=== PATIENT | male | born 1945 | race Caucasian/White ===

== ENCOUNTER → 2016-07-20 | Outpatient (CLI) | payer OTHER ==
[~2016-07-20] MED LIST: ACET-749 PO; CATAPLEX D PO; CATAPLEX E PO; CHOLINE PO; ENZYCORE PO; FERROFOOD PO; NITR1CAP16 PO; PHEN-876 PO; PROLAMINE IODINE PO; PROT1POW PO; RENATROPHIN PO; SMZ/TMP; TRACE MINERALS PO; ZYPAN PO; [UNRECOGNIZED DRUG - CODE] PO; [UNRECOGNIZED DRUG - OTHER] PO; [UNRECOGNIZED DRUG - OTHER] PO; [UNRECOGNIZED DRUG - OTHER] PO; [UNRECOGNIZED DRUG - OTHER] PO
== END | disposition home or self-care (01) ==
LOC: C.LABSPEC 17:14
PROVIDERS: ATTEND Nurse Practitioner Family
DX: R33.9 Retention of urine, unspecified (principal); R30.0 Dysuria; R35.1 Nocturia; R32 Unspecified urinary incontinence

== ENCOUNTER 2016-09-20 10:33 | Day surgery (SDC) | payer OTHER ==
[2016-09-07 14:47] LABS: BASO % 0.9 %; BASO ABS # 0.05 K/uL (0-0.2); COMPLETE YES; EOS % 3.4 %; HEMATOCRIT 36.1 % (42-52); IG% 0.2 %; LYMPH % 29.1 %; LYMPH ABS # 1.55 K/uL (1.2-3.4); MEAN CELL VOLUME 97.8 fL (80-100); MEAN CORPUSCULAR HEMOGLOBIN 34.1 pg (25-34); MEAN CORPUSCULAR HGB CONC 34.9 g/dl (32-36); MEAN PLATELET VOLUME 11.4 fL (7.4-10.4); NEUT % 54.4 %; PLATELET COUNT 206 K/uL (130-400); RED BLOOD COUNT 3.69 M/uL (4.7-6.1); WHITE BLOOD COUNT 5.33 K/uL (4.8-10.8)
[2016-09-07 15:08] LABS: BUN/CREATININE RATIO 19.3 (10-20); CALCIUM 8.9 mg/dl (8.5-10.1); CREATININE 0.73 mg/dl (0.60-1.40); POTASSIUM 4.3 mmol/L (3.5-5.1)
[2016-09-07 15:25] LABS: URINE APPEARANCE CLEAR (CLEAR); URINE BILIRUBIN NEG (NEG); URINE COLOR YELLOW; URINE NITRITE NEG (NEG); URINE PH 7.5 (4.5-7.5); UROBILINOGEN NEG (NEG)
[2016-09-07 15:28] LABS: MANUAL MICROSCOPIC REQUIRED? NO; REVIEW REQ? NO
[~2016-09-20] VITALS: Ht 175.3 cm; Wt 61.4 kg
[~2016-09-20 10:33] MED LIST changes: -ACET-749 PO; -CATAPLEX D PO; +CIPROFLOXACIN / D5W 400 MG IV SCH; -FERROFOOD PO; +LACTATED RINGER'S 1000ML 1,000 ML IV SCH; -NITR1CAP16 PO; -PHEN-876 PO; -PROLAMINE IODINE PO; -RENATROPHIN PO; -SMZ/TMP; -TRACE MINERALS PO; -[UNRECOGNIZED DRUG - CODE] PO; -[UNRECOGNIZED DRUG - OTHER] PO; -[UNRECOGNIZED DRUG - OTHER] PO; -[UNRECOGNIZED DRUG - OTHER] PO; -[UNRECOGNIZED DRUG - OTHER] PO
[2016-09-20] MEDS ORDERED: [UNRECOGNIZED DRUG - OTHER] PO (11:10)
[2016-09-20 11:13] VITALS: BP 141/90; PULSE 57; TEMP 36.5; O2SAT 99; Ht 175.3 cm; Wt 61.4 kg
[2016-09-20] MEDS ORDERED: ONDANSETRON INJ 2 MG/ML 2 ML VIAL IV PRN (11:15)
[2016-09-20] MEDS ORDERED: HYDROmorphone INJ 1 MG/ML SYR IV PRN (11:15)
[2016-09-20] MEDS ORDERED: FENTANYL CITRATE INJ 50 MCG/1 ML 2 ML VIAL IV PRN (11:15)
[2016-09-20] MEDS ORDERED: LABETALOL HCL IV 5 MG/ML 20ML IV PRN (11:15)
[2016-09-20] MEDS ORDERED: MEPERIDINE HCL 25 MG/ML CARP IV PRN (11:15)
[2016-09-20] MEDS ORDERED: EpHEDrine SULFATE INJ 50 MG/ML AMP IV PRN (11:15)
[2016-09-20] MEDS ORDERED: ATROPINE SULFATE 0.1 MG/ML 5ML SYR IV PRN (11:15)
[2016-09-20] MEDS ORDERED: LIDOCAINE HCL 2% 2 ML VIAL (20MG/ML) ONE (13:10)
[2016-09-20] MEDS ORDERED: ONDANSETRON INJ 2 MG/ML 2 ML VIAL ONE (13:10)
[2016-09-20] MEDS ORDERED: MIDAZOLAM HCL 1 MG/ML 2ML VIAL ONE (13:10)
[2016-09-20] MEDS ORDERED: PROPOFOL IV EMULSION 10 MG/ML 20 ML VIAL IV ONE (13:10)
[2016-09-20] MEDS ORDERED: FENTANYL CITRATE INJ 50 MCG/1 ML 2 ML VIAL ONE (13:10)
[2016-09-20] MEDS ORDERED: DEXAMETHASONE SOD INJ 4 MG/ML VIAL ONE (13:10)
--- NOTE | 2016-09-20 13:28 | History & Physical Bridge Note ---
H&P Re-Evaluation Bridge Note: I have examined the patient, reviewed the History & Physical and in the interval since the performance of the History & Physical I have noted the following changes of clinical significance: No changes noted
--- NOTE | 2016-09-20 14:12 | [facility] Post Operative Brief Note ---
Immediate Operative Summary Operative Date Sep 20, 2016. Pre-Operative Diagnosis Urethral stricture Post-Operative Diagnosis Urethral stricture Procedure(s) Performed cystoscopy; urethral dilation; catheter placement Surgeon Lorenzo Whitlock MD Supervisor [employer] Surgeon(s) none Estimated Blood Loss 0cc Findings bulbar urethral stricture - dilated from 12-20F - bladder neck and prostate were widely patent behind the stricture, healthy appearing bladder s/p TURP in May Specimens none Drains 18F councill tip catheter Anesthesia MAC Complication(s) None Disposition Recovery Room / PACU (stable)
[2016-09-20] MEDS ORDERED: PHEN-876 PO (14:13)
[2016-09-20] MEDS ORDERED: NITR1CAP16 PO (14:13)
[2016-09-20] MEDS ORDERED: PHENAZOPYRIDINE HCL 200 MG TAB PO STA (14:16)
[2016-09-20] MEDS ORDERED: SODIUM CHLORIDE 0.9% 1000ML 1,000 ML IV SCH (14:16)
--- NOTE | 2016-09-20 14:16 | Discharge Instructions ---
Discharge Instructions Date of Service Sep 20, 2016. Admission Reason for Admission: Urine Retention, Urethral Stricture Discharge Discharge Diagnosis / Problem: urethral stricture Discharge Goals Goal(s): Decrease discomfort, Improve function, Increase independence, Improve disease control Activity Recommendations Activity Limitations: resume your previous activity Lifting Limitations: none Exercise/Sports Limitations: none May Resume Sexual Activity: when tolerated Shower/Bathe: no limitations Driving or Machine Use: no limitations . Instructions / Follow-Up Instructions / Follow-Up Please come to Dr. Whitlock's office on 09.23.16 at 9:00AM to have your catheter removed. Discharge Diet Recommended Diet: Regular Diet Procedures Procedures Performed: cystoscopy; urethral dilation; catheter placement Pending Studies Studies pending at discharge: no Medical Emergencies . Who to Call and When: Medical Emergencies: If at any time you feel your situation is an emergency, please call 911 immediately. . Non-Emergent Contact Non-Emergency issues call your: Urologist Call Non-Emergent contact if: you have a fever, temperature is above 101.5, your pain is not controlled, your pain is worsening . . "Provider Documentation" section prepared by Parish Marroquin. VTE Core Measure Inpt VTE Proph given/why not?: Treatment not indicated
[2016-09-20] MEDS ORDERED: OXYCODONE/ACETAMINOPHEN 5-325 TAB PO PRN ×2 (14:30)
[2016-09-20] MEDS ORDERED: ACETAMINOPHEN 325 MG TAB PO PRN (14:30)
--- NOTE | 2016-09-20 14:42 | Anesthesiology Progress Note ---
Anesthesia Post Op Note Date & Time Sep 20, 2016 at 14:42 Vital Signs Pain Intensity: 0 Vital Signs Past 12 Hours Date Time Temp Pulse Resp B/P Pulse Ox O2 Delivery O2 Flow Rate FiO2 09/20/16 14:35 52 13 128/78 100 Room Air 09/20/16 14:25 50 14 112/74 100 Mask 10 09/20/16 14:16 36.5 49 16 102/68 100 Mask 10 09/20/16 11:13 36.5 57 18 141/90 99 Room Air Notes Mental Status: alert / awake / arousable, participated in evaluation Pt Amnestic to Procedure: Yes Nausea / Vomiting: adequately controlled Pain: adequately controlled Airway Patency, RR, SpO2: stable & adequate BP & HR: stable & adequate Hydration State: stable & adequate Anesthetic Complications: no major complications apparent
[2016-09-20 14:45] VITALS: BP 119/80; PULSE 54; TEMP 36.4; O2SAT 98
[2016-09-20 15:25] VITALS: BP 115/81; PULSE 54; TEMP 36.3; O2SAT 96
--- NOTE | 2016-09-20 16:38 | OPERATIVE REPORT ---
DATE OF OPERATION: 09/20/2016 PREOPERATIVE DIAGNOSIS: Urethral stricture. POSTOPERATIVE DIAGNOSIS: Urethral stricture. PROCEDURES PERFORMED: Cystoscopy, urethral dilation and catheter placement. ANESTHESIA: MAC. ESTIMATED BLOOD LOSS: Zero. URINE OUTPUT: Not recorded. SPECIMENS: There are no specimens. DRAINS: An 18-Montserratian Councill tip catheter. DESCRIPTION OF THE PROCEDURE: Dannie Zimmer was identified in the preoperative holding area. Appropriate informed consents were reviewed and completed and the patient was transported to the operating suite. Upon arrival, he received appropriate preoperative antibiotics in the form of ciprofloxacin and was sedated. He was placed in dorsolithotomy position and sterilely prepped and draped. I initially passed a 22-Montserratian cystoscope with 30 degree lens. In the bulb of the urethra, I encountered a stricture and was unable to navigate beyond it with the scope. I then passed a wire through the working element of the scope and guided it through the open lumen of the stricture and into the bladder. I then withdrew the scope. I used S-curve urethral dilators to sequentially dilate the stricture. I began at 12-Montserratian and I advanced sequentially by 2-Montserratian intervals to 20-Montserratian as my last dilator. There was return of clear urine with each of these. After completing this, I reentered with a 17-Montserratian cystoscope alongside the wire and I guided this gently through the urethra and was able to easily navigate through the nondilated stricture and into the bladder. Full inspection was carried out. The bladder appeared to be healthy a widely patent bladder neck and no significant prostatic obstruction or residual median lobe and I was able to easily pass the scope back and forth over the area of the strictured urethra. There appeared to be excellent resolution with the dilation. I withdrew the scope, leaving the bladder full and utilizing the existing safety wire, I placed an 18-Montserratian Councill tip catheter without difficulty. The patient was subsequently reversed from anesthesia and taken to the PACU in stable condition. I attest to the content of the Intraoperative Record and any orders documented therein. Any exceptio ns are noted below.
[2016-09-21] MEDS ORDERED: LACTATED RINGER'S 1000ML 1,000 ML IV SCH (06:00)
== END 2016-09-20 15:55 | disposition home or self-care (01) ==
LOC: C.ACU 10:33
PROVIDERS: ATTEND Urology
DX: N35.9 Urethral stricture, unspecified (principal); N40.1 Benign prostatic hyperplasia with lower urinary tract symptoms; N13.8 Other obstructive and reflux uropathy; D64.9 Anemia, unspecified; Z82.49 Family history of ischemic heart disease and other diseases of the circulatory system; Z82.3 Family history of stroke; Z80.0 Family history of malignant neoplasm of digestive organs

== ENCOUNTER 2019-12-05 14:20 | Inpatient (IN) ==
[2019-12-05 15:48] LABS: Eosinophils # (auto) 0.01 K/uL (0-0.5); Eosinophils % (auto) 0.2 %; Hematocrit (blood only) 32.1 % (42-52); Hemoglobin 11.5 g/dL (14.0-18.0); Immature Granulocytes # (auto) 0.01 K/uL (0.00-0.02); Immature Granulocytes % (auto) 0.2 %; Lymphocytes # (auto) 0.73 K/uL (1.2-3.4); Mean Corpuscular Hemoglobin 36.2 pg (25-34); Mean Corpuscular Hgb Conc 35.8 g/dL (32-36); Mean Corpuscular Volume 100.9 fL (80-100); Mean Platelet Volume 12.1 fL (7.4-10.4); Monocytes # (auto) 0.24 K/uL (0.11-0.59); Monocytes % (auto) 5.6 %; Neutrophils # (auto) 3.31 K/uL (1.4-6.5); Platelet Count 161 K/uL (130-400); RDW Coefficient of Variation 12.5 % (11.5-14.5); RDW Standard Deviation 45.5 fL (36.4-46.3); Red Blood Count 3.18 M/uL (4.7-6.1)
--- NOTE | 2019-12-05 15:49 | XRay Report ---
XR chest 1V portable CLINICAL HISTORY: weakness dyspnea COMPARISON STUDY: No previous studies for comparison. FINDINGS: The bones soft tissues and hemidiaphragms are normal. The cardiomediastinal silhouette is n ormal. The lungs are clear. The pulmonary vasculature is normal. IMPRESSION: Negative chest. ACT 112: Negative or not required by law. The above report was generated using voice recognition software. It may contain grammatical, syntax or spelling errors. Electronically signed by: Rod Vazquez M.D. 12/05/2019 3:48 PM
--- NOTE | 2019-12-05 15:50 | XRay Report ---
SINGLE VIEW PELVIS CLINICAL HISTORY: Fall. FINDINGS: 2 AP supine pelvic radiographs are correlated with pelvic CT dated 03/14/2019. The skeletal structures are osteopenic. There is no radiographic evidence of acute fracture involving the hips or bony pelvis. Mild/moderate degenerative joint space narrowing is seen in the hips. Lumbosacral spondy losis is partially visualized. The sacroiliac joints are normal. Phleboliths and surgical clips are n oted in the pelvis. There is no bowel obstruction. Moderate constipation is observed. IMPRESSION: No acute bony abnormality is identified. Electronically signed by: Kiran Hinojosa M.D. 12/05/2019 3:49 PM
[2019-12-05 15:57] LABS: iSTAT Creatinine 0.6 mg/dl (0.6-1.3); iSTAT Hemoglobin 11.6 g/dl (14.0-18.0); iSTAT Ionized Calcium 1.13 mmol/l (1.12-1.32)
[2019-12-05 16:05] LABS: BUN Creatinine Ratio 39.9 (10-20); Blood Urea Nitrogen 24 mg/dl (7-18); Calcium 8.9 mg/dl (8.5-10.1); Carbon Dioxide 27 mmol/L (21-32); Chloride 90 mmol/L (98-107); Creatinine Clr Calc Pharmacy 84.5 ml/min; Est GFR (African American) 114.8; Glucose 105 mg/dl (70-99); Magnesium 2.6 mg/dl (1.8-2.4); Potassium 3.9 mmol/L (3.5-5.1); Sodium 122 mmol/L (136-145)
[2019-12-05 16:09] LABS: Troponin I < 0.015 ng/ml (0-0.045)
--- NOTE | 2019-12-05 16:17 | CT Scan Report ---
HEAD CT NONCONTRAST CT DOSE: HISTORY: fall TECHNIQUE: Multiaxial CT images of the head were performed without the use of intravenous contrast. A utomated exposure control was utilized for this study. A dose lowering technique was utilized adheri ng to the principles of ALARA. Comparison: Head CT 07/20/2019. Findings: The paranasal sinuses and mastoid air cells are clear. The calvarium and skull base are int act. There is no mass, hematoma, midline shift, acute infarct. White matter hypodensity is nonspecifi c but suggestive of microvascular ischemic change. The ventricles and sulci demonstrate mild age-rela china involutional changes. Impression: No acute intracranial abnormality. Atrophy and microvascular ischemic changes. ACT 112: Negative or not required by law. Electronically signed by: Ray Castro M.D. 12/05/2019 4:16 PM
--- NOTE | 2019-12-05 16:23 | CT Scan Report ---
CERVICAL SPINE CT CT DOSE: 1074.43 mGy.cm HISTORY: Neck pain. fall TECHNIQUE: Multiaxial CT images of the cervical spine were performed and reformatted in the sagittal and coronal plane without the use of contrast. A dose lowering technique was utilized adhering to th e principles of ALARA. COMPARISON: None. FINDINGS: No fractures. Prevertebral soft tissues and the C1-C2 interval are intact. No pneumothorax. Severe degenerative disc disease throughout the cervical spine. There is 2 mm of anterolisthesis of C5 on C6. This is likely due to long-standing degenerative change. IMPRESSION: No fractures within the cervical spine. Severe degenerative changes throughout the cervical spine. ACT 112: Negative or not required by law. Electronically signed by: Ray Castro M.D. 12/05/2019 4:22 PM
[2019-12-05] MEDS ORDERED: SODIUM CHLORIDE 0.9% 1000ML 1,000 ML IV SCH (16:30)
[2019-12-05 17:40] LABS: Appearance Urine Clear (Clear); Bacteria Urine Automated Negative (Negative); Bilirubin Urine Negative (Negative); Blood Urine Trace (Negative); Cast Urine Automated 0 /lpf (0-5); Color Urine Yellow; Epithelial Cell Urine Auto 0-5 /lpf (0-5); Glucose Urine UA Negative (Negative); Ketones Urine Negative (Negative); Leukocyte Esterase Urine Negative (Negative); Nitrite Urine Negative (Negative); Protein Urine Negative (Negative); RBC Urine Automated 0-4 /hpf (0-4); Specific Gravity Urine 1.009 (1.000-1.030); Urobilinogen Urine Negative (Negative); WBC Urine Automated 0 /hpf (0-5); pH Urine 8.5 (4.5-7.5)
--- NOTE | 2019-12-05 17:57 | History & Physical Report ---
Date of Service December 05, 2019 Assessment & Plan (1) Chronic hyponatremia: This is a 74-year-old male who has significant PMH of chronic anemia, BPH, urethral stricture, history of TB in 1973 who presents to ED in the referral of PCP secondary to hyponatremia. Further admits over the past 2 to 3 months of increasing weakness, falls, dizziness with standing, and ~ 40lb weight loss in past 4 months. This is chronic hyponatremia and has been present as documented in [facility] dating back to 2003. 11/26 sodium 123, 09/05/19 125, 01/2019 130, denies further work up in past. Renal fxn 24 and 0.59, with ratio 39.9, although not dry on exam. Report excessive fluid intake of 10-15 8oz cups daily. Pt does have untreated hypothyroidism - recommending to start levothyroxine as recommended outpt and discontinuing OTC supplements as this could be contributing. He has received IVF in ED. ddx: euvolemic hyponatremia, SIADH, primary polydipsia, nephrogenic DI, malignancy, hypothyroid admit to tele consult nephrology await repeat BMP treat hypothyroidism Fluid restriction 1.5L urine osm/na and serum osm obtained - will obtain am cortisol (2) Weight loss, unintentional: pt reports ~40lb weight loss, unintentional in 4 months denies any other constitutional symptoms including night sweats CT head negative, CT chest + 3mm JASWANT pulm nodule obtain CT abd/pelvis to eval for underlying malignancy (he had EGD 09/2019 +esophagitis, colonoscopy poor prep) pre albumin in a.m., consult dental treatment coordinator treat hypothyroidism (3) Pulmonary nodule, left: incidental pulmonary nodule found on Ct 11/29 3mm JASWANT recommend follow up CT as outpt given associated weight loss, 12 months per fleischner criteria if continued weight loss of no other etiology would repeat sooner (4) Hypothyroidism: TSH 13.2, free T4 0.75 Outpatient labs 11/26 revealed TSH 13, free T4 0.73 Patient was advised to start levothyroxine; however has not yet started and has been using [id number] thyroid complex supplements Commended continuing use of thyroid supplements and starting levothyroxine 25 mcg daily (5) Anemia: H&H stable at 11.5 and 32.1 no s/sx of bleeding macrocytic obtain b12, folate, iron studies consistent with outpt lab studies (6) Lower extremity edema: Patient with bilateral lower extremity pretibial edema No signs or symptoms of DVT obtain b/l dopplers for thoroughness, along with LFTs edema likely multifactorial in setting of weight loss, hypothyroidism, possible hypoalbuminemia, polydipsia monitor, teds (7) Benign prostatic hyperplasia: continue with tropsium and myrbetriq (8) DVT prophylaxis: SQ heparin q12 Disposition: admit to tele Follow up: PCP Dr. Davenport upon discharge Pt was seen and examined in collaboration with Dr. Nick, please see addendum History of Present Illness Chief Complaint: Referred by PCP due to low sodium. Primary Care Provider: Lexa Davenport DO This is a 74-year-old male who has significant PMH of chronic anemia, BPH, urethral stricture, history of TB in 1973 who presents to ED in the referral of PCP secondary to hyponatremia. Further admits over the past 2 to 3 months of increasing weakness, falls, dizziness with standing, and ~ 40lb weight loss in past 4 months. He states, "I've always had low sodium, but never this low." "I just add more salt to my diet." He denies every having workup or nephrology referral. He denies any recent illness, fever, sweats, syncope, chest pain, sob, palpitations, cough, n/v/d, abdominal pain. He is more on the constipated side but denies melena or hematochezia. +Urinary urgency due to chronic prostate enlargement, but denies dysuria or hematuria. Denies sick contacts or known contacts with Covid 19. He denies loss of taste of smell. He admits to ~40lb weight loss in past 4 months despite adequate appetite. "I keep losing weight." He was told he had hypothyroidism, but has never taken prescription for this. He has been using OTC thyroid supplements. Further complains of lower extremity swelling, worse in evening and usual absent first thing in the morning. Last fall approx 2 weeks ago. He did have recent w/u with PCP 11/26 08/05 to weakness and weight loss which revealed Na of 123, TSH 1, Free T4 .73. He had Chest CT 11/29 to eval for possible malignancy which revealed T10 compression fracture, old right third and left lateral rib fracture, incidental 3 mm pulmonary nodule left upper lobe, thoracic aortic enlargement 4.2 cm. He currently denies any back pain. He overall does have difficulty walking secondary to weakness, but not due to pain. EGD and colonoscopy 09/2019. EGD revealed LA grade a esophagitis, no bleeding. Colonoscopy revealed poor prep and therefore unable to evaluate. He has not scheduled a for a repeat colonoscopy. It was recommended he be started on Protonix for esophagitis but he has not started this. He does overall admit to a good appetite. He drinks approximately 10-15 8 ounce cups of water/tea daily. He denies any alcohol use. In ED patient remained hemodynamically stable. Lab work notable for H&H 11.5 and 32.1, WBC 4.3 platelet 161, sodium 122, K4.0, BUN 24, creatinine 0.59, glucose 105, serum osmolality 263, mag 2.6, TSH 13.2, free T4 0.75. Urinalysis unremarkable, urine osmolality 260, urine sodium 68. He did undergo multiple imaging secondary to history of fall. He underwent head CT which revealed chronic microvascular ischemic change but no acute pathology. Cervical spine CT revealed degenerative changes but no acute abnormality. Pelvic x-ray was negative for fracture. Chest x-ray was negative for acute cardiopulmonary normality. Allergies Allergy/AdvReac Type Severity Reaction Status Date / Time Penicillins Allergy Mild HIVES, RASH Unverified 12/05/19 15:28 lactose AdvReac Mild GI UPSET Verified 12/05/19 15:28 solifenacin AdvReac Mild SEVERE Verified 12/05/19 15:28 DIARRHEA Home Medications Home Medications Medication Instructions Recorded Confirmed Type Cataplex B 2 tabs PO TIDM 12/05/19 12/05/19 History Enzycore 1 cap PO TIDM 12/05/19 12/05/19 History Tarik Food 1 tab PO DAILY 12/05/19 12/05/19 History Ligaplex 2 2 tab PO TIDM 12/05/19 12/05/19 History Magnesium Malate 0 mg PO UD 12/05/19 12/05/19 History Thyroid Complex Otc 1 tab PO DAILY 12/05/19 12/05/19 History Thytropin Tab 1 tab PO TIDM 12/05/19 12/05/19 History cyanocobalamin (vitamin B-12) 0 mcg PO DAILY 12/05/19 12/05/19 History [Vitamin B-12] mirabegron [Myrbetriq] 25 mg PO DAILY 12/05/19 12/05/19 History trospium 60 mg PO QAM 12/05/19 12/05/19 History Past Med/Surg History Medical History Anemia Benign prostatic hyperplasia (Chronic) History of anemia History of colitis History of depression Hx of migraines Hx of tuberculosis A "YOUNG MAN" (NEVER HAD SKIN TEST SINCE FINISHED TREATMENT/ANTIBIOTICS) Hypothyroidism (Acute) "HAS NOT STARTED THYROID MEDICATION PRESCRIBED" Lactose intolerance Osteoarthritis Urinary frequency Surgical History History of anesthesia reaction URINARY RETENTION History of appendectomy History of cataract surgery RT/LEFT History of colonoscopy History of cystoscopy History of herniorrhaphy INGUINAL HERNIA X 2 History of removal of testicle STRANGULATED/NECROTIC History of tonsillectomy History of tooth extraction Hx of transurethral resection of prostate Family History Brother Family hx of colon cancer Other Cancer Heart disease Social History Preferred Language: Maldivian Communication Ability: Effective Pressroom Foreman Required: No Beliefs That Will Affect Care: None Current Living Situation: Alone Other Information That Helps Us Care for You: No Feels Safe at Home: Yes Safety Concerns: Feels Safe At This Time Smoking Status: Never smoker Second Hand Exposure: No ; Hx Alcohol Use: No Hx Substance Use: No Review of Systems Review of Systems: All systems reviewed & are unremarkable except as noted in HPI & below Physical Exam Physical Exam: Constitutional: Thin, cachectic, M, vitals as above, NAD, sitting up in bed, pleasant, conversing easily Head: Normocephalic, Atraumatic Eyes: PERRL, conjunctivae normal, anicteric sclerae ENMT: external ear and nose normal, oropharynx normal Neck: trachea midline, no thyromegaly normal visual inspection Respiratory: normal respiratory effort, lungs clear to auscultation, no wheeze, rales, rhonchi. Normal insp/exp effort, no accessory muscle use Cardiovascular: RRR, no murmur, +1 lower extremity, pretibial edema, no erythema, warmth, negative homans sign Vessels: no JVD or carotid bruit Chest: normal inspection of chest Abdomen: normal bowel sounds, soft, nontender, no hepatosplenomegaly Musculoskeletal: no cyanosis or clubbing, extremities motor strength 5/5 Skin: no rashes, warm and dry normal turgor Neurologic: PERRL, EOMI, accommodation nl, no face palsy, no dysarthria CN's II-XI intact bilaterally and moves all extremities Psychiatric: A+Ox3, euthymic affect Lymphatic: no cervical or axillary lymphadenopathy : deferred Results & Data Results & Data ([facility]) Vital Signs (Past 12 Hours) Vital Signs Pulse Pulse Resp BP BP Pulse Ox 12/05/19 16:45 96 12/05/19 16:44 52 L 21 153/88 H 96 12/05/19 14:34 67 20 117/72 98 Laboratory Results Short CBC 12/05/19 Range/Units 15:36 WBC 4.30 L (4.8-10.8) K/uL Hgb 11.5 L (14.0-18.0) g/dL Hct 32.1 L (42-52) % Plt Count 161 (130-400) K/uL BMP 12/05/19 15:36 Sodium 122 L Potassium 3.9 Chloride 90 L Carbon Dioxide 27 BUN 24 H Creatinine 0.59 L Glucose 105 H Calcium 8.9 Cardiac Enzymes 12/05/19 Range/Units 15:36 Troponin I < 0.015 (0-0.045) ng/ml Urine 12/05/19 Range/Units 17:05 Urine Color Yellow Urine Appearance Clear (Clear) Urine pH 8.5 H (4.5-7.5) Ur Specific [place] 1.009 (1.000-1.030) Urine Protein Negative (Negative) Urine Glucose (UA) Negative (Negative) Diagnostic Findings CXR: IMPRESSION: Negative chest. Cervical Spine: IMPRESSION: No fractures within the cervical spine. Severe degenerative changes throughout the cervical spine. Head CT: Impression: No acute intracranial abnormality. Atrophy and microvascular ischemic changes. Pelvis Xray: IMPRESSION: No acute bony abnormality is identified. CT CHEST: 11/27/2019 [facility] FINDINGS THYROID:No suspicious features. THORACIC AORTA: Ascending aorta dilated to 4.2 cm. CORONARY ARTERIES: No coronary artery calcifcation. MAIN PULMONARY ARTERY: Normal sized. HEART: Nopericardial effusion. ESOPHAGUS: Grossly unremarkable. MEDIASTINUM AND BUSTER: Unremarkable. CHEST SOFT TISSUES: Unremarkable CHEST WALL: Old right 3rd rib fracture. Old right 11th lateral rib fracture. Moderate T10 compression fracture. LUNGS: Nonspecific solid 3 mm pulmonary nodule in the left upper lobe. LARGE AIRWAYS: Unremarkable UPPER ABDOMEN: Unremarkable IMPRESSION IMPRESSION Nonspecific 3 mm solid pulmonary nodule in the left upper lobe Medications Administered Sodium Chloride (Nss 1000ml) 1,000 mls @ 125 mls/hr IV .Q8H JUSTYN Stop: 01/04/20 16:29 Last Admin: 12/05/19 16:43 Dose: 125 mls/hr Documented by: [id number] ECG Rate (beats per minute): 50 Rhythm: sinus bradycardia Code Status & VTE Plan Code Status Full Code VTE Prophylaxis Plan VTE Prophylaxis will be ordered: Yes Supervising Physician Co-Signing Physician Notes Attending Addendum: care coordinated with CAROLINE Gonzalez please refer to her notes for full details, I agree with her notes patient seen and examined, records reviewed by myself as well on exam, patient seen sitting up in bed, comfortable, having supper States he feels much improved since admission Denies active dizziness, nausea, abdominal pain, chest pain, shortness of breath no other symptoms VS noted and reviewed oriented x 3 , not in distress, speaks in sentences with no effort nor accessory muscle use; underweight normal rate, regular rhythm, no murmurs clear breath sounds bilaterally non distended, soft, nontender Positive bilateral pedal edema, erythema, warmth no neuro deficits WBC 4.3 Hg 11.5 Crea 0.64 Sodium 121 ASSESSMENT AND PLAN Acute on chronic hyponatremia Hypotonic, euvolemic Likely from hypothyroidism, SIADH, component of dehydration? Sodium improved from 121-->126 after IV NSS given at the ER Check sodium every 4 hours Fluid restriction Nephrology consult Start levothyroxine 20 mcg daily, repeat thyroid function tests in 3 to 4 days Weight loss, rule out underlying malignancy CT chest done as an outpatient: +[address] abdomen pelvis without contrast: Poor study, suspicious for bulky lymphadenopathy versus loops of bowel CT abdomen pelvis with contrast: Pending PSA pending Bilateral pedal edema Check echocardiogram other diagnoses and plan of care as per CAROLINE Gonzalez's notes Leonel Nick MD
[2019-12-05 18:05] LABS: T4 Free Thyroxine 0.75 ng/dl (0.8-1.6)
--- NOTE | 2019-12-05 19:02 | Emergency Department Note ---
History of Present Illness General Chief complaint: Weakness Stated complaint: NOT FEELING WELL,BALANCE OFF,WEAKNESS Time Seen by Provider: 12/05/19 15:11 History of Present Illness Provider complaint: Weakness, recurrent falls Maximum Pain Intensity: 2 74-year-old male presents emergency department for weakness. He states he has felt weak for quite some times. He states that he has also been having recurrent falls. He is not on any blood thinners. Patient states he was seen by his PCP at [facility] who rudy blood work and told him to come into the emergency department because his sodium was low. Home Medications Home Medications Medication Instructions Recorded Confirmed Type Cataplex B 2 tabs PO TIDM 12/05/19 12/05/19 History Enzycore 1 cap PO TIDM 12/05/19 12/05/19 History Tarik Food 1 tab PO DAILY 12/05/19 12/05/19 History Ligaplex 2 2 tab PO TIDM 12/05/19 12/05/19 History Magnesium Malate 0 mg PO UD 12/05/19 12/05/19 History Thyroid Complex Otc 1 tab PO DAILY 12/05/19 12/05/19 History Thytropin Tab 1 tab PO TIDM 12/05/19 12/05/19 History cyanocobalamin (vitamin B-12) 0 mcg PO DAILY 12/05/19 12/05/19 History [Vitamin B-12] mirabegron [Myrbetriq] 25 mg PO DAILY 12/05/19 12/05/19 History trospium 60 mg PO QAM 12/05/19 12/05/19 History Allergies Allergy/AdvReac Type Severity Reaction Status Date / Time Penicillins Allergy Mild HIVES, RASH Unverified 12/05/19 15:28 lactose AdvReac Mild GI UPSET Verified 12/05/19 15:28 solifenacin AdvReac Mild SEVERE Verified 12/05/19 15:28 DIARRHEA Past Med/Surg History Medical History Anemia Benign prostatic hyperplasia (Chronic) History of anemia History of colitis History of depression Hx of migraines Hx of tuberculosis A "YOUNG MAN" (NEVER HAD SKIN TEST SINCE FINISHED TREATMENT/ANTIBIOTICS) Hypothyroidism (Acute) "HAS NOT STARTED THYROID MEDICATION PRESCRIBED" Lactose intolerance Osteoarthritis Urinary frequency Surgical History History of anesthesia reaction URINARY RETENTION History of appendectomy History of cataract surgery RT/LEFT History of colonoscopy History of cystoscopy History of herniorrhaphy INGUINAL HERNIA X 2 History of removal of testicle STRANGULATED/NECROTIC History of tonsillectomy History of tooth extraction Hx of transurethral resection of prostate Family History Brother Family hx of colon cancer Other Cancer Heart disease Social History Preferred Language: [place] Communication Ability: Effective Water Safety Instructor Required: No Beliefs That Will Affect Care: None Current Living Situation: Alone Feels Safe at Home: Yes Smoking Status: Never smoker Second Hand Exposure: No ; Hx Alcohol Use: No Hx Substance Use: No Review of Systems A total of 10 systems reviewed and were otherwise negative Physical Exam Vital Signs Vital Signs - 24 hr 12/05/19 14:34 12/05/19 15:31 12/05/19 16:00 Pulse Rate 67 53 L 53 L Pulse Rate [Apical] Pulse Rate from SpO2 Sensor Respiratory Rate 20 16 17 Respiratory Depth Respiratory Pattern Blood Pressure 117/72 Blood Pressure [Left Arm] Blood Pressure Mean 87 Blood Pressure Mean [Left Arm] Blood Pressure Position Sitting Pulse Oximetry 98 Oxygen Delivery Method Room Air Sepsis Recent Fever Within 48 Hours No Sepsis New/Unexplained Change in Mental Status No Sepsis Action Taken by Nursing No Action Required 12/05/19 16:42 12/05/19 16:43 12/05/19 16:44 Pulse Rate 53 L 55 L Pulse Rate [Apical] 52 L Pulse Rate from SpO2 Sensor 53 L Respiratory Rate 14 13 21 Respiratory Depth Normal Respiratory Pattern Regular Blood Pressure 153/88 H Blood Pressure [Left Arm] 153/88 H Blood Pressure Mean 94 Blood Pressure Mean [Left Arm] 109 Blood Pressure Position Pulse Oximetry 93 96 Oxygen Delivery Method Room Air Sepsis Recent Fever Within 48 Hours Sepsis New/Unexplained Change in Mental Status Sepsis Action Taken by Nursing 12/05/19 16:45 12/05/19 17:00 12/05/19 17:30 Pulse Rate 62 49 L Pulse Rate [Apical] Pulse Rate from SpO2 Sensor Respiratory Rate 19 Respiratory Depth Respiratory Pattern Blood Pressure 135/79 Blood Pressure [Left Arm] Blood Pressure Mean 99 Blood Pressure Mean [Left Arm] Blood Pressure Position Pulse Oximetry 96 Oxygen Delivery Method Sepsis Recent Fever Within 48 Hours Sepsis New/Unexplained Change in Mental Status Sepsis Action Taken by Nursing 12/05/19 18:00 12/05/19 18:07 Pulse Rate 75 Pulse Rate [Apical] Pulse Rate from SpO2 Sensor Respiratory Rate 19 19 Respiratory Depth Respiratory Pattern Blood Pressure 145/90 H Blood Pressure [Left Arm] Blood Pressure Mean Blood Pressure Mean [Left Arm] Blood Pressure Position Pulse Oximetry 95 Oxygen Delivery Method Room Air Sepsis Recent Fever Within 48 Hours Sepsis New/Unexplained Change in Mental Status Sepsis Action Taken by Nursing Physical Exam GENERAL: Cachectic HENT: Exam performed. - Head: Normocephalic and atraumatic. - Right Ear: External ear normal. No mastoid tenderness. - Left Ear: External ear normal. No mastoid tenderness. - Mouth/Throat: The oropharynx is clear and moist. No trismus in the jaw. No dental abscesses or uvula swelling. No oropharyngeal exudate or tonsillar abscesses. EYES: Conjunctivae and EOM are normal. Pupils are equal, round, and reactive to light. Right eye exhibits no discharge. Left eye exhibits no discharge. No scleral icterus. NECK: Normal range of motion. Neck supple. No JVD present. No spinous process tenderness present. No carotid bruit present. No rigidity. No tracheal deviation and normal range of motion present. No Brudzinski's sign and no Kernig's sign noted. CV: Normal rate, regular rhythm, normal heart sounds and intact distal pulses. There is no peripheral edema. Palpable radial pulses bue. PULM/CHEST: Effort normal and breath sounds normal. No respiratory distress. No stridor. He has no wheezes. He has no rales. - Chest Wall: He exhibits no tenderness. ABD: The abdomen is soft. Bowel sounds are normal. He has no distension. No mass is present. There is no tenderness. There is no rebound, no guarding, no Allison's sign and no tenderness at McBurney's point. Rovsig negative. MUSC/SKEL: Normal range of motion. There is no peripheral edema, tenderness or deformity. LYMPH: No cervical adenopathy. NEURO: He is alert and oriented to person, place, and time. He has normal strength. No cranial nerve deficit or sensory deficit. Coordination and gait normal. GCS eye subscore is 4. GCS verbal subscore is 5. GCS motor subscore is 6. Cerebellar tests wnl. SKIN: Skin is warm and dry. He is not diaphoretic. PSYCH: He has a normal mood and affect. Behavior is normal. Judgment and thought content normal. Course Course 1529: The patient was evaluated in room B 10. A complete history and physical exam was performed. 1629: Vital signs stable. 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 Sodium on November [address] of the chest without contrast showed a 3 mm pulmonary nodule in the left upper lobe. Labs show sodium of 122. [facility] discussed with Elise JACOBS who stated to admit to Dr. Nick. It is concerning that the patient's nodule might be cancerous and thus contributing to his hyponatremia. [facility] team will work this up inpatient. Administered Medications Discontinued Medications Sodium Chloride (Nss 1000ml) 1,000 mls @ 125 mls/hr IV .Q8H JUSTYN Stop: 01/04/20 16:29 Last Admin: 12/05/19 16:43 Dose: 125 mls/hr Documented by: [id number] Medical Decision Making Laboratory Data Result diagrams: 12/05/19 15:36 12/05/19 15:36 Lab Results 12/05/19 12/05/19 12/05/19 Range/Units 15:36 15:36 15:37 WBC 4.30 L (4.8-10.8) K/uL RBC 3.18 L (4.7-6.1) M/uL Hgb 11.5 L (14.0-18.0) g/dL POC Hgb (14.0-18.0) g/dl Hct 32.1 L (42-52) % POC Hct (42-52) % MCV 100.9 H (80-100) fL MCH 36.2 H (25-34) pg MCHC 35.8 (32-36) g/dL RDW Std Deviation 45.5 (36.4-46.3) fL RDW Coeff of Guille 12.5 (11.5-14.5) % Plt Count 161 (130-400) K/uL MPV 12.1 H (7.4-10.4) fL Immature Gran % (Auto) 0.2 % Neut % (Auto) 77.0 % Lymph % (Auto) 17.0 % [place] % (Auto) 5.6 % Eos % (Auto) 0.2 % Baso % (Auto) 0.0 % Immature Gran # (Auto) 0.01 (0.00-0.02) K/uL Neut # (Auto) 3.31 (1.4-6.5) K/uL Lymph # (Auto) 0.73 L (1.2-3.4) K/uL [place] # (Auto) 0.24 (0.11-0.59) K/uL Eos # (Auto) 0.01 (0-0.5) K/uL Baso # (Auto) 0.00 (0-0.2) K/uL POC Sodium (135-144) mmol/L Sodium 122 L (136-145) mmol/L POC Potassium (3.3-5.0) mmol/L Potassium 3.9 (3.5-5.1) mmol/L POC Chloride (101-112) mmol/L Chloride 90 L (98-107) mmol/L Carbon Dioxide 27 (21-32) mmol/L POC Total CO2 (24-31) mmol/L Anion Gap 5.0 (3-11) POC Anion Gap (16-25) mmol/L POC BUN (7-18) mg/dl BUN 24 H (7-18) mg/dl Creatinine 0.59 L (0.6-1.4) mg/dl POC Creatinine (0.6-1.3) mg/dl Est Cr Clr Drug Dosing 84.5 ml/min Est GFR ( Amer) 114.8 Est GFR (Non-Af Amer) 99.0 BUN/Creatinine Ratio 39.9 H (10-20) Glucose 105 H (70-99) mg/dl POC Glucose (other) (70-99) mg/dl Osmolality 263 L (280-300) mOsm/kg Calcium 8.9 (8.5-10.1) mg/dl POC Ioniz Calcium Mitchell (1.12-1.32) mmol/l Magnesium 2.6 H (1.8-2.4) mg/dl Troponin I < 0.015 (0-0.045) ng/ml TSH 13.200 H (0.300-4.500) uIu/ml Free T4 0.75 L (0.8-1.6) ng/dl Urine Color Urine Appearance (Clear) Urine pH (4.5-7.5) Ur Specific [place] (1.000-1.030) Urine Protein (Negative) Urine Glucose (UA) (Negative) Urine Ketones (Negative) Urine Blood (Negative) Urine Nitrite (Negative) Urine Bilirubin (Negative) Urine Urobilinogen (Negative) Ur Leukocyte Esterase (Negative) Urine WBC (Auto) (0-5) /hpf Urine RBC (Auto) (0-4) /hpf U Hyaline Cast (Auto) (0-5) /lpf U Epithel Cells (Auto) (0-5) /lpf Urine Bacteria (Auto) (Negative) Urine Osmolality (500-800) mOsm/kg Ur Random Sodium mmol/L 12/05/19 12/05/19 12/05/19 Range/Units 15:44 17:05 17:05 WBC (4.8-10.8) K/uL RBC (4.7-6.1) M/uL Hgb (14.0-18.0) g/dL POC Hgb 11.6 L (14.0-18.0) g/dl Hct (42-52) % POC Hct 34 L (42-52) % MCV (80-100) fL MCH (25-34) pg MCHC (32-36) g/dL RDW Std Deviation (36.4-46.3) fL RDW Coeff of Guille (11.5-14.5) % Plt Count (130-400) K/uL MPV (7.4-10.4) fL Immature Gran % (Auto) % Neut % (Auto) % Lymph % (Auto) % [place] % (Auto) % Eos % (Auto) % Baso % (Auto) % Immature Gran # (Auto) (0.00-0.02) K/uL Neut # (Auto) (1.4-6.5) K/uL Lymph # (Auto) (1.2-3.4) K/uL [place] # (Auto) (0.11-0.59) K/uL Eos # (Auto) (0-0.5) K/uL Baso # (Auto) (0-0.2) K/uL POC Sodium 121 L (135-144) mmol/L Sodium (136-145) mmol/L POC Potassium 4.0 (3.3-5.0) mmol/L Potassium (3.5-5.1) mmol/L POC Chloride 88 L (101-112) mmol/L Chloride (98-107) mmol/L Carbon Dioxide (21-32) mmol/L POC Total CO2 26 (24-31) mmol/L Anion Gap (3-11) POC Anion Gap 12.0 L (16-25) mmol/L POC BUN 25 H (7-18) mg/dl BUN (7-18) mg/dl Creatinine (0.6-1.4) mg/dl POC Creatinine 0.6 (0.6-1.3) mg/dl Est Cr Clr Drug Dosing ml/min Est GFR ( Amer) Est GFR (Non-Af Amer) BUN/Creatinine Ratio (10-20) Glucose (70-99) mg/dl POC Glucose (other) 106 H (70-99) mg/dl Osmolality (280-300) mOsm/kg Calcium (8.5-10.1) mg/dl POC Ioniz Calcium [place] 1.13 (1.12-1.32) mmol/l Magnesium (1.8-2.4) mg/dl Troponin I (0-0.045) ng/ml TSH (0.300-4.500) uIu/ml Free T4 (0.8-1.6) ng/dl Urine Color Urine Appearance (Clear) Urine pH (4.5-7.5) Ur Specific [place] (1.000-1.030) Urine Protein (Negative) Urine Glucose (UA) (Negative) Urine Ketones (Negative) Urine Blood (Negative) Urine Nitrite (Negative) Urine Bilirubin (Negative) Urine Urobilinogen (Negative) Ur Leukocyte Esterase (Negative) Urine WBC (Auto) (0-5) /hpf Urine RBC (Auto) (0-4) /hpf U Hyaline Cast (Auto) (0-5) /lpf U Epithel Cells (Auto) (0-5) /lpf Urine Bacteria (Auto) (Negative) Urine Osmolality 216 L (500-800) mOsm/kg Ur Random Sodium 68 mmol/L 12/05/19 Range/Units 17:05 WBC (4.8-10.8) K/uL RBC (4.7-6.1) M/uL Hgb (14.0-18.0) g/dL POC Hgb (14.0-18.0) g/dl Hct (42-52) % POC Hct (42-52) % MCV (80-100) fL MCH (25-34) pg MCHC (32-36) g/dL RDW Std Deviation (36.4-46.3) fL RDW Coeff of Guille (11.5-14.5) % Plt Count (130-400) K/uL MPV (7.4-10.4) fL Immature Gran % (Auto) % Neut % (Auto) % Lymph % (Auto) % [place] % (Auto) % Eos % (Auto) % Baso % (Auto) % Immature Gran # (Auto) (0.00-0.02) K/uL Neut # (Auto) (1.4-6.5) K/uL Lymph # (Auto) (1.2-3.4) K/uL [place] # (Auto) (0.11-0.59) K/uL Eos # (Auto) (0-0.5) K/uL Baso # (Auto) (0-0.2) K/uL POC Sodium (135-144) mmol/L Sodium (136-145) mmol/L POC Potassium (3.3-5.0) mmol/L Potassium (3.5-5.1) mmol/L POC Chloride (101-112) mmol/L Chloride (98-107) mmol/L Carbon Dioxide (21-32) mmol/L POC Total CO2 (24-31) mmol/L Anion Gap (3-11) POC Anion Gap (16-25) mmol/L POC BUN (7-18) mg/dl BUN (7-18) mg/dl Creatinine (0.6-1.4) mg/dl POC Creatinine (0.6-1.3) mg/dl Est Cr Clr Drug Dosing ml/min Est GFR ( Amer) Est GFR (Non-Af Amer) BUN/Creatinine Ratio (10-20) Glucose (70-99) mg/dl POC Glucose (other) (70-99) mg/dl Osmolality (280-300) mOsm/kg Calcium (8.5-10.1) mg/dl POC Ioniz Calcium [place] (1.12-1.32) mmol/l Magnesium (1.8-2.4) mg/dl Troponin I (0-0.045) ng/ml TSH (0.300-4.500) uIu/ml Free T4 (0.8-1.6) ng/dl Urine Color Yellow Urine Appearance Clear (Clear) Urine pH 8.5 H (4.5-7.5) Ur Specific [place] 1.009 (1.000-1.030) Urine Protein Negative (Negative) Urine Glucose (UA) Negative (Negative) Urine Ketones Negative (Negative) Urine Blood Trace H (Negative) Urine Nitrite Negative (Negative) Urine Bilirubin Negative (Negative) Urine Urobilinogen Negative (Negative) Ur Leukocyte Esterase Negative (Negative) Urine WBC (Auto) 0 (0-5) /hpf Urine RBC (Auto) 0-4 (0-4) /hpf U Hyaline Cast (Auto) 0 (0-5) /lpf U Epithel Cells (Auto) 0-5 (0-5) /lpf Urine Bacteria (Auto) Negative (Negative) Urine Osmolality (500-800) mOsm/kg Ur Random Sodium mmol/L Imaging Data Radiologist's Impression: SINGLE VIEW PELVIS CLINICAL HISTORY: Fall. FINDINGS: 2 AP supine pelvic radiographs are correlated with pelvic CT dated 03/14/2019. The skeletal structures are osteopenic. There is no radiographic evidence of acute fracture involving the hips or bony pelvis. Mild/moderate degenerative joint space narrowing is seen in the hips. Lumbosacral spondylosis is partially visualized. The sacroiliac joints are normal. Phleboliths and surgical clips are noted in the pelvis. There is no bowel obstruction. Moderate constipation is observed. IMPRESSION: No acute bony abnormality is identified. Electronically signed by: Kiran Hinojosa M.D. 12/05/2019 3:49 PM Dictated: 12/05/19 1547 Transcribed: 12/05/[address] DOSE: HISTORY: fall TECHNIQUE: Multiaxial CT images of the head were performed without the use of intravenous contrast. Automated exposure control was utilized for this study. A dose lowering technique was utilized adhering to the principles of ALARA. Comparison: Head CT 07/20/2019. Findings: The paranasal sinuses and mastoid air cells are clear. The calvarium and skull base are intact. There is no mass, hematoma, midline shift, acute infarct. White matter hypodensity is nonspecific but suggestive of microvascular ischemic change. The ventricles and sulci demonstrate mild age-related involutional changes. Impression: No acute intracranial abnormality. Atrophy and microvascular ischemic changes. ACT 112: Negative or not required by law. Electronically signed by: Ray Castro M.D. 12/05/2019 4:16 PM Dictated: 12/05/19 1611 Transcribed: 12/05/[address] DOSE: 1074.43 mGy.cm HISTORY: Neck pain. fall TECHNIQUE: Multiaxial CT images of the cervical spine were performed and reformatted in the sagittal and coronal plane without the use of contrast. A dose lowering technique was utilized adhering to the principles of ALARA. COMPARISON: None. FINDINGS: No fractures. Prevertebral soft tissues and the C1-C2 interval are intact. No pneumothorax. Severe degenerative disc disease throughout the cervical spine. There is 2 mm of anterolisthesis of C5 on C6. This is likely due to long-standing degenerative change. IMPRESSION: No fractures within the cervical spine. Severe degenerative changes throughout the cervical spine. ACT 112: Negative or not required by law. Electronically signed by: Ray Castro M.D. 12/05/2019 4:22 PM Dictated: 12/05/19 1616 Transcribed: 12/05/191615 XR chest 1V portable CLINICAL HISTORY: weakness dyspnea COMPARISON STUDY: No previous studies for comparison. FINDINGS: The bones soft tissues and hemidiaphragms are normal. The cardiomediastinal silhouette is normal. The lungs are clear. The pulmonary vasculature is normal. IMPRESSION: Negative chest. ACT 112: Negative or not required by law. The above report was generated using voice recognition software. It may contain grammatical, syntax or spelling errors. Electronically signed by: Rod Vazquez M.D. 12/05/2019 3:48 PM Dictated: 12/05/19 1547 Transcribed: 12/05/19 1547 ECG Data Indication: + weakness Rate (beats per minute): 50 Rhythm: + normal sinus ECG Intervals/blocks: + Normal QRS, + Normal NH and + Normal QT-c ECG ST segments: + Normal ST segments MDM Narrative Vital signs stable. 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 Sodium on November [address] of the chest without contrast showed a 3 mm pulmonary nodule in the left upper lobe. Labs show sodium of 122. [facility] discussed with Elise JACOBS who stated to admit to Dr. Nick. It is concerning that the patient's nodule might be cancerous and thus contributing to his hyponatremia. [facility] team will work this up inpatient. Impression & Plan Hyponatremia Discharge Plan Visit Data Chief Complaint: Weakness Stated Complaint: NOT FEELING WELL,BALANCE OFF,WEAKNESS ED Provider: Gordo Upton Discharge Problem: Hyponatremia Patient Disposition: Being Evaluated by Hospitalist Discharge Instructions Interventions: ED Discharge Assessment Last Done: 12/05/19 18:07 Forms Stand Alone Forms: My [facility] [address] Prescriptions Prescriptions: No Action cyanocobalamin (vitamin B-12) [Vitamin B-12] 1,000 mcg Tablet 0 mcg PO DAILY RF: 0 trospium 60 mg capsule,extended release 24hr 60 mg PO QAM RF: 0 Myrbetriq 25 mg tablet extended release 24 hr 25 mg PO DAILY RF: 0 Cataplex B 2 tabs PO TIDM RF: 0 Enzycore 1 cap PO TIDM RF: 0 Tarik Food 1 tab PO DAILY RF: 0 Ligaplex 2 2 tab PO TIDM RF: 0 Magnesium Malate 0 mg PO UD RF: 0 Thyroid Complex Otc 1 tab PO DAILY RF: 0 Thytropin Tab 1 tab PO TIDM RF: 0 Referrals Referrals: Lexa Davenport DO [Primary Care Provider] -
--- NOTE | 2019-12-05 19:12 | CT Scan Report ---
CT abd pelvis wo con CT DOSE: 258.25 mGy.cm HISTORY: 40lb weight loss, eval for malignancy TECHNIQUE: Multiaxial CT images of the abdomen and pelvis were performed without contrast. A dose lo wering technique was utilized adhering to the principles of ALARA. COMPARISON STUDY: 03/14/2019 FINDINGS: Nondiagnostic study due to absence of oral contrast. Lung bases are considered clear. Liver spleen an d pancreas are limited in terms of visibility but are grossly unremarkable. Kidneys are considered negative for hydronephrosis. There is suggestion of periaortic bulky adenopathy versus unopacified loops of bowel. Evaluation of the pelvis is essentially nondiagnostic due to the presence of fluid-filled loops of bakari wel, with a possible lymphadenopathy impossible to exclude. Moderate is midline. Prostate is moderate ly enlarged. IMPRESSION: 1. Nondiagnostic and/or near nondiagnostic study due to the absence of oral contrast as well as limit ed if absent intravenous contrast. 2. Considerable increase in fecal load consistent with fecal stasis. 3. Unopacified loops of bowel versus the possibility of bulky retroperitoneal as well as pelvic adeno alejandra. 4. It is recommended that a fully enhanced study be repeated if possible.. ACT 112: Negative or not required by law. The above report was generated using voice recognition software. It may contain grammatical, syntax or spelling errors. Electronically signed by: Rod Vazquez M.D. 12/05/2019 7:10 PM
--- NOTE | 2019-12-05 19:49 | Ultrasound Report ---
US venous doppler LE BI HISTORY: Pain edema COMPARISON STUDY: None. FINDINGS: There is normal compressibility, flow, and augmentation within the bilateral lower extremit y deep venous systems. IMPRESSION: No DVT within the right or left lower extremity. ACT 112: Negative or not required by law. The above report was generated using voice recognition software. It may contain grammatical, syntax or spelling errors. Electronically signed by: Rod Vazquez M.D. 12/05/2019 7:48 PM
[2019-12-05] MEDS ORDERED: ONDANSETRON INJ 2 MG/ML 2 ML VIAL IV PRN (19:58)
[2019-12-05] MEDS ORDERED: POLYETHYLENE (MIRALAX) 17 GM PACK PO PRN (19:58)
[2019-12-05] MEDS ORDERED: ALUMINUM/MAGNESIUM SUSP 30 ML UDC PO PRN (19:58)
[2019-12-05] MEDS ORDERED: ACETAMINOPHEN 325 MG TAB PO PRN (19:58)
[2019-12-05] MEDS ORDERED: MAGNESIUM HYDROXIDE SUSP 30 ML UDC PO PRN (19:58)
[2019-12-05 20:39] LABS: BUN Creatinine Ratio 32.7 (10-20); Calcium 9.1 mg/dl (8.5-10.1); Creatinine Clr Calc Pharmacy 77.9 ml/min; Est GFR (Non-African American) 95.8; Potassium 3.7 mmol/L (3.5-5.1)
[2019-12-05] MEDS: HEPARIN SOD 5,000 UNIT/0.5 ML VIAL SQ SCH (20:49)
[2019-12-05] MEDS: DOCUSATE SODIUM/SENNA 50/8.6MG TAB PO SCH (20:50)
[2019-12-05] MEDS ORDERED: IOVERSOL 100ml IV PRN (22:46)
[2019-12-05 23:27] LABS: Albumin Level 3.3 gm/dl (3.4-5.0); BUN Creatinine Ratio 36.8 (10-20); Bilirubin Direct 0.1 mg/dl (0-0.2); Creatinine Clr Calc Pharmacy 92.9 ml/min; Est GFR (African American) 121.9; Est GFR (Non-African American) 105.2; Potassium 3.5 mmol/L (3.5-5.1)
[2019-12-05 23:30] LABS: Bilirubin,Total 0.5 mg/dl (0.2-1); Ferritin 192.3 ng/ml (8-388); Total Protein 6.8 gm/dl (6.4-8.2)
[2019-12-05 23:45] LABS: Folate (Folic Acid) 12.45 ng/ml (>5.38)
[2019-12-06] MEDS ORDERED: TROSPIUM: ORDER AWAITING ACTION SCH
[2019-12-06] MEDS ORDERED: SODIUM CHLORIDE 0.9% 500 ML IV ONE (02:17)
[2019-12-06 03:09] LABS: BUN Creatinine Ratio 29.7 (10-20); Calcium 8.3 mg/dl (8.5-10.1); Creatinine Clr Calc Pharmacy 80.3 ml/min; Est GFR (African American) 114.8; Potassium 3.1 mmol/L (3.5-5.1)
[2019-12-06] MEDS ORDERED: POTASSIUM CHLORIDE 20 MEQ TABCR PO STA (03:23)
[2019-12-06] MEDS ORDERED: POTASSIUM CHLORIDE 40 MEQ in SODIUM CHLORIDE 0.45 % 1,000 ML IV ONE (04:00)
[2019-12-06] MEDS: LEVOTHYROXINE SODIUM 25 MCG TABLET PO SCH (05:57)
[2019-12-06] MEDS: TROSPIUM PO SCH (07:04)
[2019-12-06 07:14] LABS: Basophils # (auto) 0.01 K/uL (0-0.2); Basophils % (auto) 0.4 %; Eosinophils # (auto) 0.01 K/uL (0-0.5); Eosinophils % (auto) 0.4 %; Hematocrit (blood only) 33.7 % (42-52); Hemoglobin 12.3 g/dL (14.0-18.0); Lymphocytes # (auto) 0.64 K/uL (1.2-3.4); Lymphocytes % (auto) 25.8 %; Mean Corpuscular Hemoglobin 35.9 pg (25-34); Mean Corpuscular Hgb Conc 36.5 g/dL (32-36); Mean Corpuscular Volume 98.3 fL (80-100); Mean Platelet Volume 11.4 fL (7.4-10.4); Monocytes # (auto) 0.19 K/uL (0.11-0.59); Monocytes % (auto) 7.7 %; Neutrophils # (auto) 1.63 K/uL (1.4-6.5); Neutrophils % (auto) 65.7 %; Platelet Count 171 K/uL (130-400); RDW Coefficient of Variation 12.4 % (11.5-14.5); Red Blood Count 3.43 M/uL (4.7-6.1); White Blood Count 2.48 K/uL (4.8-10.8)
--- NOTE | 2019-12-06 07:26 | CT Scan Report ---
ABDOMEN AND PELVIS CT WITH IV AND ORAL CONTRAST CT DOSE: 248.79 mGy.cm HISTORY: Weight loss. Evaluate for malignancy. inadequate imaging due to lack of contrast onstudy TECHNIQUE: Multiaxial CT images of the abdomen and pelvis were performed following the use of intrave nous and oral contrast. A dose lowering technique was utilized adhering to the principles of ALARA. COMPARISON STUDY: Abdomen and pelvis CT 12/05/2019. FINDINGS: The lung bases are clear. No pneumoperitoneum. No pneumatosis. No suspicious lytic or blast ic osseous lesions. Severe degenerative disc disease at L4-5 and L5-S1. Suboptimal evaluation of the abdomen and pelvis due to the lack of intraperitoneal fat from the cachectic appearance. A 5 mm hypod ense lesion within the right hepatic lobe is technically too small to characterize but favors a cyst. The gallbladder, pancreas, adrenal glands, and right kidney are unremarkable. The main portal vein i s patent. The spleen appears atrophic. A 6 mm hypodense lesion within the left kidney is technically too small to characterize but favors a cyst. No hydronephrosis. No retroperitoneal lymphadenopathy. T he bladder is unremarkable. The prostate gland is heterogeneous and enlarged. Large amount well-forme d stool seen throughout the colon. No definite bowel wall thickening or obstruction. Surgical clips w ithin the right lower quadrant mid IMPRESSION: 1. Overall, cachectic appearance resulting in lack of intraperitoneal fat. This results in a suboptim al study. 2. However, no definite bowel wall thickening or obstruction. 3. Heterogeneous enlarged prostate gland. 4. No lymphadenopathy identified. ACT 112: Negative or not required by law. Electronically signed by: Ray Castro M.D. 12/06/2019 7:25 AM
[2019-12-06 07:50] LABS: Albumin Level 3.4 gm/dl (3.4-5.0); BUN Creatinine Ratio 41.2 (10-20); Calcium 8.7 mg/dl (8.5-10.1); Creatinine Clr Calc Pharmacy 119.5 ml/min; Est GFR (African American) 137.5; Est GFR (Non-African American) 118.7; Magnesium 2.3 mg/dl (1.8-2.4); Potassium 3.8 mmol/L (3.5-5.1)
[2019-12-06 07:56] LABS: Bilirubin,Total 0.4 mg/dl (0.2-1); Globulin 3.4 gm/dl (2.5-4.0); Prostate Specific Antigen 3.41 ng/ml (0-4); Total Protein 6.8 gm/dl (6.4-8.2)
[2019-12-06] MEDS: CYANOCOBALAMIN 500 MCG TABLET (VITAMIN B-12) PO SCH (08:00)
[2019-12-06] MEDS: DOCUSATE SODIUM/SENNA 50/8.6MG TAB PO SCH (08:00)
[2019-12-06] MEDS: HEPARIN SOD 5,000 UNIT/0.5 ML VIAL SQ SCH ×2 (08:01→20:46)
--- NOTE | 2019-12-06 08:16 | Hospitalist Progress Note ---
Date of Service December 06, 2019 Assessment & Plan (1) Chronic hyponatremia: This is a 74-year-old male who has significant PMH of chronic anemia, BPH, urethral stricture, history of TB in 1973 who presents to ED in the referral of PCP secondary to hyponatremia. Further admits over the past 2 to 3 months of increasing weakness, falls, dizziness with standing, and ~ 20lb weight loss in past 4 months. This is chronic hyponatremia and has been present as documented in [facility] dating back to 2003. 11/26 sodium 123, 09/05/19 125, 01/2019 130, denies further work up in past. Renal fxn 24 and 0.59, with ratio 39.9, although not dry on exam. Report excessive fluid intake of 10-15 8oz cups daily. Pt does have untreated hypothyroidism - recommending to start levothyroxine as recommended outpt and discontinuing OTC supplements as this could be contributing. He has received IVF in ED. 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 treat hypothyroidism Patient is severely malnourished, says that he follows with asphalt raker at [facility] Patient has been on a very restrictive diet, for no good reason Patient was seen today by dietitian here, had a long discussion about improving his nutritional status (3) Pulmonary nodule, left: incidental pulmonary nodule found on Ct 11/29 3mm JASWANT recommend follow up CT as outpt given associated weight loss, 12 months per fleischner criteria if continued weight loss of no other etiology would repeat sooner (4) Hypothyroidism: TSH 13.2, free T4 0.75 Outpatient labs 11/26 revealed TSH 13, free T4 0.73 Patient was advised to start levothyroxine; however has not yet started and has been using [id number] thyroid complex supplements Commended continuing use of thyroid supplements and starting levothyroxine 25 mcg daily (5) Anemia: H&H stable at 11.5 and 32.1 no s/sx of bleeding Possibly due to poor nutrition macrocytic obtain b12, folate, iron studies consistent with outpt lab studies (6) Lower extremity edema: Patient with bilateral lower extremity pretibial edema No signs or symptoms of DVT obtain b/l dopplers for thoroughness, along with LFTs edema likely multifactorial in setting of weight loss, hypothyroidism, possible hypoalbuminemia, polydipsia monitor, teds (7) Benign prostatic hyperplasia: continue with tropsium and myrbetriq (8) DVT prophylaxis: SQ heparin q12 Disposition: tele Follow up: PCP Dr. Davenport upon discharge Admission and Anticipated Discharge Date Admission Date: December 05, 2019 Subjective Patient is lying in bed, in no acute distress. Patient says that he already feels somewhat better. Discussed with nephrology and dietitian, his poor nutritional status, and encouraged higher protein diet. Fluid restriction of 1.5 L was also advised. 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 Review of Systems Review of Systems: All systems reviewed & are unremarkable except as noted in HPI & below Constitutional: no fever and no chills Respiratory: no cough and no dyspnea Cardiovascular: no chest pain and no palpitations Gastrointestinal: no abdominal pain, no nausea and no vomiting Physical Exam Physical Exam: Constitutional: Thin, cachectic, male, vitals as above,in NAD, sitting up in bed, pleasant, conversing easily Head: Normocephalic, Atraumatic Eyes: PERRL, conjunctivae normal, anicteric sclerae, EOMI ENMT: external ear and nose normal, oropharynx normal Neck: trachea midline, no thyromegaly normal visual inspection Respiratory: normal respiratory effort, lungs clear to auscultation, no wheeze, rales, rhonchi. Normal insp/exp effort, no accessory muscle use Cardiovascular: RRR, no murmur, +1 lower extremity pretibial edema, no erythema, warmth Vessels: no JVD or carotid bruit Chest: normal inspection of chest Abdomen: normal bowel sounds, soft, nontender, thin, nondistended Musculoskeletal: no cyanosis or clubbing, extremities motor strength 5/5, moves extremities spontaneously Skin: no rashes, warm and dry Neurologic: PERRL, EOMI, accommodation nl, no face palsy, no dysarthria CN's II-XI intact bilaterally and moves all extremities Psychiatric: A+Ox3, euthymic affect Results & Data Results & Data ([facility]) Vital Signs (Past 12 Hours) Vital Signs Temp Pulse Pulse Resp BP Pulse Ox 12/06/19 07:00 36.4 C L 51 L 16 125/80 98 12/06/19 03:34 36.5 C 53 L 16 112/76 97 12/06/19 01:13 52 L 12/05/19 23:30 36.3 C L 62 18 127/76 94 12/05/19 21:21 36.7 C 52 L 51 L 18 153/98 H 98 Laboratory Results 12/06/19 12/06/19 12/06/19 Range/Units 06:59 06:59 06:59 WBC 2.48 L (4.8-10.8) K/uL RBC 3.43 L (4.7-6.1) M/uL Hgb 12.3 L (14.0-18.0) g/dL POC Hgb (14.0-18.0) g/dl Hct 33.7 L (42-52) % POC Hct (42-52) % MCV 98.3 (80-100) fL MCH 35.9 H (25-34) pg MCHC 36.5 H (32-36) g/dL RDW Std Deviation 45.0 (36.4-46.3) fL RDW Coeff of Guille 12.4 (11.5-14.5) % Plt Count 171 (130-400) K/uL MPV 11.4 H (7.4-10.4) fL Immature Gran % (Auto) 0.0 % Neut % (Auto) 65.7 % Lymph % (Auto) 25.8 % [place] % (Auto) 7.7 % Eos % (Auto) 0.4 % Baso % (Auto) 0.4 % Immature Gran # (Auto) 0.00 (0.00-0.02) K/uL Neut # (Auto) 1.63 (1.4-6.5) K/uL Lymph # (Auto) 0.64 L (1.2-3.4) K/uL [place] # (Auto) 0.19 (0.11-0.59) K/uL Eos # (Auto) 0.01 (0-0.5) K/uL Baso # (Auto) 0.01 (0-0.2) K/uL POC Sodium (135-144) mmol/L Sodium 128 L (136-145) mmol/L POC Potassium (3.3-5.0) mmol/L Potassium 3.8 D (3.5-5.1) mmol/L POC Chloride (101-112) mmol/L Chloride 97 L (98-107) mmol/L Carbon Dioxide 23 (21-32) mmol/L POC Total CO2 (24-31) mmol/L Anion Gap 8.0 (3-11) POC Anion Gap (16-25) mmol/L POC BUN (7-18) mg/dl BUN 16 (7-18) mg/dl Creatinine 0.38 L (0.6-1.4) mg/dl POC Creatinine (0.6-1.3) mg/dl Est Cr Clr Drug Dosing 119.5 ml/min Est GFR ( Amer) 137.5 Est GFR (Non-Af Amer) 118.7 BUN/Creatinine Ratio 41.2 H (10-20) Glucose 76 (70-99) mg/dl POC Glucose (other) (70-99) mg/dl Osmolality (280-300) mOsm/kg Calcium 8.7 (8.5-10.1) mg/dl POC Ioniz Calcium Mitchell (1.12-1.32) mmol/l Magnesium 2.3 (1.8-2.4) mg/dl Iron (35-175) mcg/dl TIBC (250-450) mcg/dl Ferritin (8-388) ng/ml Total Bilirubin 0.4 (0.2-1) mg/dl Direct Bilirubin (0-0.2) mg/dl AST 50 H (15-37) U/L ALT 43 (12-78) U/L Alkaline Phosphatase 75 (45-117) U/L Troponin I (0-0.045) ng/ml Total Protein 6.8 (6.4-8.2) gm/dl Albumin 3.4 (3.4-5.0) gm/dl Globulin 3.4 (2.5-4.0) gm/dl Albumin/Globulin Ratio 1.0 (0.9-2) Prealbumin 18.0 L (20-40) mg/dl Prostate Specific Ag 3.410 (0-4) ng/ml Vitamin B12 (211-911) pg/ml Folate (>5.38) ng/ml TSH (0.300-4.500) uIu/ml Free T4 (0.8-1.6) ng/dl Cortisol AM Sample Pending Urine Color Urine Appearance (Clear) Urine pH (4.5-7.5) Ur Specific [place] (1.000-1.030) Urine Protein (Negative) Urine Glucose (UA) (Negative) Urine Ketones (Negative) Urine Blood (Negative) Urine Nitrite (Negative) Urine Bilirubin (Negative) Urine Urobilinogen (Negative) Ur Leukocyte Esterase (Negative) Urine WBC (Auto) (0-5) /hpf Urine RBC (Auto) (0-4) /hpf U Hyaline Cast (Auto) (0-5) /lpf U Epithel Cells (Auto) (0-5) /lpf Urine Bacteria (Auto) (Negative) Urine Osmolality (500-800) mOsm/kg Ur Random Creatinine mg/dl Ur Random Sodium mmol/L 12/06/19 12/05/19 12/05/19 Range/Units 02:38 22:57 22:57 WBC (4.8-10.8) K/uL RBC (4.7-6.1) M/uL Hgb (14.0-18.0) g/dL POC Hgb (14.0-18.0) g/dl Hct (42-52) % POC Hct (42-52) % MCV (80-100) fL MCH (25-34) pg MCHC (32-36) g/dL RDW Std Deviation (36.4-46.3) fL RDW Coeff of Guille (11.5-14.5) % Plt Count (130-400) K/uL MPV (7.4-10.4) fL Immature Gran % (Auto) % Neut % (Auto) % Lymph % (Auto) % [place] % (Auto) % Eos % (Auto) % Baso % (Auto) % Immature Gran # (Auto) (0.00-0.02) K/uL Neut # (Auto) (1.4-6.5) K/uL Lymph # (Auto) (1.2-3.4) K/uL [place] # (Auto) (0.11-0.59) K/uL Eos # (Auto) (0-0.5) K/uL Baso # (Auto) (0-0.2) K/uL POC Sodium (135-144) mmol/L Sodium 129 L 124 L (136-145) mmol/L POC Potassium (3.3-5.0) mmol/L Potassium 3.1 L 3.5 (3.5-5.1) mmol/L POC Chloride (101-112) mmol/L Chloride 94 L 90 L (98-107) mmol/L Carbon Dioxide 29 28 (21-32) mmol/L POC Total CO2 (24-31) mmol/L Anion Gap 6.0 6.0 (3-11) POC Anion Gap (16-25) mmol/L POC BUN (7-18) mg/dl BUN 17 19 H (7-18) mg/dl Creatinine 0.59 L 0.51 L (0.6-1.4) mg/dl POC Creatinine (0.6-1.3) mg/dl Est Cr Clr Drug Dosing 80.3 92.9 ml/min Est GFR ( Amer) 114.8 121.9 Est GFR (Non-Af Amer) 99.0 105.2 BUN/Creatinine Ratio 29.7 H 36.8 H (10-20) Glucose 72 92 (70-99) mg/dl POC Glucose (other) (70-99) mg/dl Osmolality (280-300) mOsm/kg Calcium 8.3 L 8.0 L (8.5-10.1) mg/dl POC Ioniz Calcium Mitchell (1.12-1.32) mmol/l Magnesium (1.8-2.4) mg/dl Iron 71 (35-175) mcg/dl TIBC 249 L (250-450) mcg/dl Ferritin 192.3 (8-388) ng/ml Total Bilirubin 0.5 (0.2-1) mg/dl Direct Bilirubin 0.1 (0-0.2) mg/dl AST 44 H (15-37) U/L ALT 43 (12-78) U/L Alkaline Phosphatase 80 (45-117) U/L Troponin I (0-0.045) ng/ml Total Protein 6.8 (6.4-8.2) gm/dl Albumin 3.3 L (3.4-5.0) gm/dl Globulin (2.5-4.0) gm/dl Albumin/Globulin Ratio (0.9-2) Prealbumin (20-40) mg/dl Prostate Specific Ag (0-4) ng/ml Vitamin B12 1069 H (211-911) pg/ml Folate 12.45 (>5.38) ng/ml TSH (0.300-4.500) uIu/ml Free T4 (0.8-1.6) ng/dl Cortisol AM Sample Urine Color Urine Appearance (Clear) Urine pH (4.5-7.5) Ur Specific [place] (1.000-1.030) Urine Protein (Negative) Urine Glucose (UA) (Negative) Urine Ketones (Negative) Urine Blood (Negative) Urine Nitrite (Negative) Urine Bilirubin (Negative) Urine Urobilinogen (Negative) Ur Leukocyte Esterase (Negative) Urine WBC (Auto) (0-5) /hpf Urine RBC (Auto) (0-4) /hpf U Hyaline Cast (Auto) (0-5) /lpf U Epithel Cells (Auto) (0-5) /lpf Urine Bacteria (Auto) (Negative) Urine Osmolality (500-800) mOsm/kg Ur Random Creatinine mg/dl Ur Random Sodium mmol/L 12/05/19 12/05/19 12/05/19 Range/Units 20:35 20:03 17:05 WBC (4.8-10.8) K/uL RBC (4.7-6.1) M/uL Hgb (14.0-18.0) g/dL POC Hgb (14.0-18.0) g/dl Hct (42-52) % POC Hct (42-52) % MCV (80-100) fL MCH (25-34) pg MCHC (32-36) g/dL RDW Std Deviation (36.4-46.3) fL RDW Coeff of Guille (11.5-14.5) % Plt Count (130-400) K/uL MPV (7.4-10.4) fL Immature Gran % (Auto) % Neut % (Auto) % Lymph % (Auto) % [place] % (Auto) % Eos % (Auto) % Baso % (Auto) % Immature Gran # (Auto) (0.00-0.02) K/uL Neut # (Auto) (1.4-6.5) K/uL Lymph # (Auto) (1.2-3.4) K/uL [place] # (Auto) (0.11-0.59) K/uL Eos # (Auto) (0-0.5) K/uL Baso # (Auto) (0-0.2) K/uL POC Sodium (135-144) mmol/L Sodium 126 L (136-145) mmol/L POC Potassium (3.3-5.0) mmol/L Potassium 3.7 (3.5-5.1) mmol/L POC Chloride (101-112) mmol/L Chloride 92 L (98-107) mmol/L Carbon Dioxide 28 (21-32) mmol/L POC Total CO2 (24-31) mmol/L Anion Gap 6.0 (3-11) POC Anion Gap (16-25) mmol/L POC BUN (7-18) mg/dl BUN 21 H (7-18) mg/dl Creatinine 0.64 (0.6-1.4) mg/dl POC Creatinine (0.6-1.3) mg/dl Est Cr Clr Drug Dosing 77.9 ml/min Est GFR ( Amer) 111.0 Est GFR (Non-Af Amer) 95.8 BUN/Creatinine Ratio 32.7 H (10-20) Glucose 63 L (70-99) mg/dl POC Glucose (other) (70-99) mg/dl Osmolality (280-300) mOsm/kg Calcium 9.1 (8.5-10.1) mg/dl POC Ioniz Calcium Mitchell (1.12-1.32) mmol/l Magnesium (1.8-2.4) mg/dl Iron (35-175) mcg/dl TIBC (250-450) mcg/dl Ferritin (8-388) ng/ml Total Bilirubin (0.2-1) mg/dl Direct Bilirubin (0-0.2) mg/dl AST (15-37) U/L ALT (12-78) U/L Alkaline Phosphatase (45-117) U/L Troponin I (0-0.045) ng/ml Total Protein (6.4-8.2) gm/dl Albumin (3.4-5.0) gm/dl Globulin (2.5-4.0) gm/dl Albumin/Globulin Ratio (0.9-2) Prealbumin (20-40) mg/dl Prostate Specific Ag (0-4) ng/ml Vitamin B12 (211-911) pg/ml Folate (>5.38) ng/ml TSH (0.300-4.500) uIu/ml Free T4 (0.8-1.6) ng/dl Cortisol AM Sample Urine Color Yellow Urine Appearance Clear (Clear) Urine pH 8.5 H (4.5-7.5) Ur Specific [place] 1.009 (1.000-1.030) Urine Protein Negative (Negative) Urine Glucose (UA) Negative (Negative) Urine Ketones Negative (Negative) Urine Blood Trace H (Negative) Urine Nitrite Negative (Negative) Urine Bilirubin Negative (Negative) Urine Urobilinogen Negative (Negative) Ur Leukocyte Esterase Negative (Negative) Urine WBC (Auto) 0 (0-5) /hpf Urine RBC (Auto) 0-4 (0-4) /hpf U Hyaline Cast (Auto) 0 (0-5) /lpf U Epithel Cells (Auto) 0-5 (0-5) /lpf Urine Bacteria (Auto) Negative (Negative) Urine Osmolality (500-800) mOsm/kg Ur Random Creatinine < 13.0 mg/dl Ur Random Sodium mmol/L 12/05/19 12/05/19 12/05/19 Range/Units 17:05 17:05 15:44 WBC (4.8-10.8) K/uL RBC (4.7-6.1) M/uL Hgb (14.0-18.0) g/dL POC Hgb 11.6 L (14.0-18.0) g/dl Hct (42-52) % POC Hct 34 L (42-52) % MCV (80-100) fL MCH (25-34) pg MCHC (32-36) g/dL RDW Std Deviation (36.4-46.3) fL RDW Coeff of Guille (11.5-14.5) % Plt Count (130-400) K/uL MPV (7.4-10.4) fL Immature Gran % (Auto) % Neut % (Auto) % Lymph % (Auto) % [place] % (Auto) % Eos % (Auto) % Baso % (Auto) % Immature Gran # (Auto) (0.00-0.02) K/uL Neut # (Auto) (1.4-6.5) K/uL Lymph # (Auto) (1.2-3.4) K/uL [place] # (Auto) (0.11-0.59) K/uL Eos # (Auto) (0-0.5) K/uL Baso # (Auto) (0-0.2) K/uL POC Sodium 121 L (135-144) mmol/L Sodium (136-145) mmol/L POC Potassium 4.0 (3.3-5.0) mmol/L Potassium (3.5-5.1) mmol/L POC Chloride 88 L (101-112) mmol/L Chloride (98-107) mmol/L Carbon Dioxide (21-32) mmol/L POC Total CO2 26 (24-31) mmol/L Anion Gap (3-11) POC Anion Gap 12.0 L (16-25) mmol/L POC BUN 25 H (7-18) mg/dl BUN (7-18) mg/dl Creatinine (0.6-1.4) mg/dl POC Creatinine 0.6 (0.6-1.3) mg/dl Est Cr Clr Drug Dosing ml/min Est GFR ( Amer) Est GFR (Non-Af Amer) BUN/Creatinine Ratio (10-20) Glucose (70-99) mg/dl POC Glucose (other) 106 H (70-99) mg/dl Osmolality (280-300) mOsm/kg Calcium (8.5-10.1) mg/dl POC Ioniz Calcium Mitchell 1.13 (1.12-1.32) mmol/l Magnesium (1.8-2.4) mg/dl Iron (35-175) mcg/dl TIBC (250-450) mcg/dl Ferritin (8-388) ng/ml Total Bilirubin (0.2-1) mg/dl Direct Bilirubin (0-0.2) mg/dl AST (15-37) U/L ALT (12-78) U/L Alkaline Phosphatase (45-117) U/L Troponin I (0-0.045) ng/ml Total Protein (6.4-8.2) gm/dl Albumin (3.4-5.0) gm/dl Globulin (2.5-4.0) gm/dl Albumin/Globulin Ratio (0.9-2) Prealbumin (20-40) mg/dl Prostate Specific Ag (0-4) ng/ml Vitamin B12 (211-911) pg/ml Folate (>5.38) ng/ml TSH (0.300-4.500) uIu/ml Free T4 (0.8-1.6) ng/dl Cortisol AM Sample Urine Color Urine Appearance (Clear) Urine pH (4.5-7.5) Ur Specific [place] (1.000-1.030) Urine Protein (Negative) Urine Glucose (UA) (Negative) Urine Ketones (Negative) Urine Blood (Negative) Urine Nitrite (Negative) Urine Bilirubin (Negative) Urine Urobilinogen (Negative) Ur Leukocyte Esterase (Negative) Urine WBC (Auto) (0-5) /hpf Urine RBC (Auto) (0-4) /hpf U Hyaline Cast (Auto) (0-5) /lpf U Epithel Cells (Auto) (0-5) /lpf Urine Bacteria (Auto) (Negative) Urine Osmolality 216 L (500-800) mOsm/kg Ur Random Creatinine mg/dl Ur Random Sodium 68 mmol/L 12/05/19 12/05/19 12/05/19 Range/Units 15:37 15:36 15:36 WBC 4.30 L (4.8-10.8) K/uL RBC 3.18 L (4.7-6.1) M/uL Hgb 11.5 L (14.0-18.0) g/dL POC Hgb (14.0-18.0) g/dl Hct 32.1 L (42-52) % POC Hct (42-52) % MCV 100.9 H (80-100) fL MCH 36.2 H (25-34) pg MCHC 35.8 (32-36) g/dL RDW Std Deviation 45.5 (36.4-46.3) fL RDW Coeff of Guille 12.5 (11.5-14.5) % Plt Count 161 (130-400) K/uL MPV 12.1 H (7.4-10.4) fL Immature Gran % (Auto) 0.2 % Neut % (Auto) 77.0 % Lymph % (Auto) 17.0 % [place] % (Auto) 5.6 % Eos % (Auto) 0.2 % Baso % (Auto) 0.0 % Immature Gran # (Auto) 0.01 (0.00-0.02) K/uL Neut # (Auto) 3.31 (1.4-6.5) K/uL Lymph # (Auto) 0.73 L (1.2-3.4) K/uL [place] # (Auto) 0.24 (0.11-0.59) K/uL Eos # (Auto) 0.01 (0-0.5) K/uL Baso # (Auto) 0.00 (0-0.2) K/uL POC Sodium (135-144) mmol/L Sodium 122 L (136-145) mmol/L POC Potassium (3.3-5.0) mmol/L Potassium 3.9 (3.5-5.1) mmol/L POC Chloride (101-112) mmol/L Chloride 90 L (98-107) mmol/L Carbon Dioxide 27 (21-32) mmol/L POC Total CO2 (24-31) mmol/L Anion Gap 5.0 (3-11) POC Anion Gap (16-25) mmol/L POC BUN (7-18) mg/dl BUN 24 H (7-18) mg/dl Creatinine 0.59 L (0.6-1.4) mg/dl POC Creatinine (0.6-1.3) mg/dl Est Cr Clr Drug Dosing 84.5 ml/min Est GFR ( Amer) 114.8 Est GFR (Non-Af Amer) 99.0 BUN/Creatinine Ratio 39.9 H (10-20) Glucose 105 H (70-99) mg/dl POC Glucose (other) (70-99) mg/dl Osmolality 263 L (280-300) mOsm/kg Calcium 8.9 (8.5-10.1) mg/dl POC Ioniz Calcium [place] (1.12-1.32) mmol/l Magnesium 2.6 H (1.8-2.4) mg/dl Iron (35-175) mcg/dl TIBC (250-450) mcg/dl Ferritin (8-388) ng/ml Total Bilirubin (0.2-1) mg/dl Direct Bilirubin (0-0.2) mg/dl AST (15-37) U/L ALT (12-78) U/L Alkaline Phosphatase (45-117) U/L Troponin I < 0.015 (0-0.045) ng/ml Total Protein (6.4-8.2) gm/dl Albumin (3.4-5.0) gm/dl Globulin (2.5-4.0) gm/dl Albumin/Globulin Ratio (0.9-2) Prealbumin (20-40) mg/dl Prostate Specific Ag (0-4) ng/ml Vitamin B12 (211-911) pg/ml Folate (>5.38) ng/ml TSH 13.200 H (0.300-4.500) uIu/ml Free T4 0.75 L (0.8-1.6) ng/dl Cortisol AM Sample Urine Color Urine Appearance (Clear) Urine pH (4.5-7.5) Ur Specific [place] (1.000-1.030) Urine Protein (Negative) Urine Glucose (UA) (Negative) Urine Ketones (Negative) Urine Blood (Negative) Urine Nitrite (Negative) Urine Bilirubin (Negative) Urine Urobilinogen (Negative) Ur Leukocyte Esterase (Negative) Urine WBC (Auto) (0-5) /hpf Urine RBC (Auto) (0-4) /hpf U Hyaline Cast (Auto) (0-5) /lpf U Epithel Cells (Auto) (0-5) /lpf Urine Bacteria (Auto) (Negative) Urine Osmolality (500-800) mOsm/kg Ur Random Creatinine mg/dl Ur Random Sodium mmol/L Medications Administered Current Inpatient Medications Acetaminophen (Tylenol) 650 mg PO Q4H PRN PRN Reason: Pain or Fever Stop: 01/04/20 19:57 Al Hydrox/Mg Hydrox/Simethicone (Maalox) 15 ml PO Q4H PRN PRN Reason: Dyspepsia Stop: 01/04/20 19:57 Cyanocobalamin (Vitamin B-12) 1,000 mcg PO DAILY JUSTYN Stop: 01/05/20 08:59 Last Admin: 12/06/19 08:00 Dose: 1,000 mcg Documented by: Heparin Sodium (Porcine) (Heparin Sodium (Porcine)) 5,000 units SQ Q12 JUSTYN Stop: 01/04/20 20:59 Last Admin: 12/06/19 08:01 Dose: Not Given Documented by: Potassium Chloride 40 meq/ (Sodium Chloride) 1,020 mls @ 50 mls/hr IV .[id number] ONE Stop: 12/07/19 00:23 Last Admin: 12/06/19 04:06 Dose: 50 mls/hr Documented by: Ioversol (Optiray 320 100ml) 92 ml IV ONCE PRN PRN Reason: Interaction Checking Stop: 12/09/19 22:45 Last Admin: 12/05/19 22:46 Dose: 92 ml Documented by: Levothyroxine Sodium (Synthroid) 25 mcg PO DAILYBB COUNT INCLUDES THE [facility] Stop: 01/05/20 06:29 Last Admin: 12/06/19 05:57 Dose: 25 mcg Documented by: Magnesium Hydroxide (Milk Of Magnesia) 30 ml PO Q12H PRN PRN Reason: Constipation Stop: 01/04/20 19:57 Mirabegron (Myrbetriq Er) 25 mg PO DAILY COUNT INCLUDES THE [facility] Stop: 01/05/20 08:59 Trospium~Non- Formulary Patient's Own Med 1 ea PO Q24H COUNT INCLUDES THE [facility] Stop: 01/05/20 06:29 Last Admin: 12/06/19 07:04 Dose: 60 mg Documented by: Ondansetron HCl (Zofran) 4 mg IV Q6H PRN PRN Reason: Nausea Stop: 01/04/20 19:57 Polyethylene Glycol (Miralax Powder Packet) 17 gm PO DAILY PRN PRN Reason: Constipation Stop: 01/04/20 19:57 Senna/Docusate Sodium (Senokot S) 1 tab PO QAM JUSTYN Stop: 01/04/20 20:29 Last Admin: 12/06/19 08:00 Dose: 1 tab Documented by:
[2019-12-06] MEDS ORDERED: MIRABEGRON ER 25 MG TAB PO SCH (09:00)
[2019-12-06 10:49] LABS: BUN Creatinine Ratio 34.7 (10-20); Calcium 8.7 mg/dl (8.5-10.1); Creatinine Clr Calc Pharmacy 100.9 ml/min; Est GFR (African American) 128.3; Est GFR (Non-African American) 110.7; Potassium 3.9 mmol/L (3.5-5.1)
--- NOTE | 2019-12-06 10:50 | Nephrology Consultation ---
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 His urine is monitor and urine sodium were high. Sodium is improving after IV fluids and treatment of his hypothyroidism. We discussed pathophysiology of hyponatremia. -He should be on a fluid restriction of 1.5 L at most even after discharge. -I encouraged him to have at least 3 regular meals with emphasis on high protein diet -Okay to salt his food -Monitor sodium daily. Target rate of correction of 6 points daily (2) Lower extremity edema: Likely due to low albumin and venous stasis. He is wearing compression stockings. Will consider adding Lasix if he is sodium does not improve. History of Present Illness Reason for Consultation: Hyponatremia Requesting Physician: Evans Khan MD Attending Physician: Evans Khan MD History of Present Illness This is 74-year-old male with history of BPH, urethral stricture follows with urology, chronic anemia for which he follows with hematology and most recent check chronic hyponatremia with baseline sodium between mid 120s to 130s who was admitted on 12/05/2019 with weakness and fall found to have hyponatremia of 122. His urine osmolality was 216, urine sodium of 68 and serum osmolality of 263. He was given IV normal saline 1 L bolus. His sodium increased to 126. Overnight he has been receiving half-normal saline with potassium chloride. This morning his sodium is 128. He feels better today. He was ambulating in the hallways. He reports lower extremity swelling for the past few months. He is also had a 40 pound weight loss over the past 4 months which is reportedly unintentional. Patient endorses missing meals on a regular basis. He drinks about 8 ounces of fluids daily. He was also found to have hypothyroidism and is now on levothyroxine. He has urinary frequency in setting of BPH. Patient lives alone. Allergies Allergy/AdvReac Type Severity Reaction Status Date / Time Penicillins Allergy Mild HIVES, RASH Unverified 12/05/19 15:28 lactose AdvReac Mild GI UPSET Verified 12/05/19 15:28 solifenacin AdvReac Mild SEVERE Verified 12/05/19 15:28 DIARRHEA Home Medications Home Medications Medication Instructions Recorded Confirmed Type Cataplex B 2 tabs PO TIDM 12/05/19 12/05/19 History Enzycore 1 cap PO TIDM 12/05/19 12/05/19 History Tarik Food 1 tab PO DAILY 12/05/19 12/05/19 History Ligaplex 2 2 tab PO TIDM 12/05/19 12/05/19 History Magnesium Malate 0 mg PO UD 12/05/19 12/05/19 History Thyroid Complex Otc 1 tab PO DAILY 12/05/19 12/05/19 History Thytropin Tab 1 tab PO TIDM 12/05/19 12/05/19 History cyanocobalamin (vitamin B-12) 0 mcg PO DAILY 12/05/19 12/05/19 History [Vitamin B-12] mirabegron [Myrbetriq] 25 mg PO DAILY 12/05/19 12/05/19 History trospium 60 mg PO QAM 12/05/19 12/05/19 History Patient History Medical History Anemia Benign prostatic hyperplasia (Chronic) History of anemia History of colitis History of depression Hx of migraines Hx of tuberculosis A "YOUNG MAN" (NEVER HAD SKIN TEST SINCE FINISHED TREATMENT/ANTIBIOTICS) Hypothyroidism (Acute) "HAS NOT STARTED THYROID MEDICATION PRESCRIBED" Lactose intolerance Osteoarthritis Urinary frequency Surgical History History of anesthesia reaction URINARY RETENTION History of appendectomy History of cataract surgery RT/LEFT History of colonoscopy History of cystoscopy History of herniorrhaphy INGUINAL HERNIA X 2 History of removal of testicle STRANGULATED/NECROTIC History of tonsillectomy History of tooth extraction Hx of transurethral resection of prostate Family History Brother Family hx of colon cancer Other Cancer Heart disease Social History Preferred Language: Bol[place]ian Communication Ability: Effective 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 Required: No Beliefs That Will Affect Care: None Current Living Situation: Alone Other Information That Helps Us Care for You: No Feels Safe at Home: Yes Safety Concerns: Feels Safe At This Time Smoking Status: Never smoker Second Hand Exposure: No ; Hx Alcohol Use: No Hx Substance Use: No Review of Systems Review of Systems: All systems reviewed & are unremarkable except as noted in HPI & below Physical Exam Physical Exam: General exam: Cachectic, appears comfortable, no acute distress HEENT: Pupils are equal and reactive to light Neck: No JVD, neck is supple trachea is midline Respiratory system: Clear breath sounds bilaterally. Gastrointestinal: Abdomen is soft, non distended, non tender, bowel sounds are present CVS: Regular rate and rhythm. No murmurs, rubs or gallops Musculoskeletal: No joint or muscle tenderness Extremities: Non tender, 1+ edema, peripheral pulses are present Neuro: Oriented, no tremors, no focal neurological deficits Skin: No rashes Results & Data Vital Signs (Past 12 Hours) Vital Signs Temp Pulse Pulse Resp BP Pulse Ox 12/06/19 07:00 36.4 C L 51 L 16 125/80 98 12/06/19 03:34 36.5 C 53 L 16 112/76 97 12/06/19 01:13 52 L 12/05/19 23:30 36.3 C L 62 18 127/76 94 Laboratory Results 12/06/19 06:59 12/05/19 12/05/19 12/06/19 15:36 22:57 06:59 WBC 4.30 L RBC 3.18 L MCV 100.9 H MCH 36.2 H MCHC 35.8 RDW Std Deviation 45.5 RDW Coeff of Guille 12.5 Plt Count 161 MPV 12.1 H Albumin 3.3 L 3.4 12/06/19 06:59 WBC 2.48 L RBC 3.43 L MCV 98.3 MCH 35.9 H MCHC 36.5 H RDW Std Deviation 45.0 RDW Coeff of Guille 12.4 Plt Count 171 MPV 11.4 H Albumin
--- NOTE | 2019-12-06 14:47 | Electrocardiogram Report ---
Test Reason : Blood Pressure : / mmHG Vent. Rate : 050 BPM Atrial Rate : 050 BPM P-R Int : 182 ms QRS Dur : 096 ms QT Int : 418 ms P-R-T Axes : 056 048 059 degrees QTc Int : 381 ms Sinus bradycardia Low voltage QRS Nonspecific T wave abnormality Abnormal ECG When compared with ECG of 07-MAY-2016 09:06, Nonspecific T wave abnormality now evident in Lateral leads Confirmed by John William ([id number]) on 12/06/2019 2:47:11 PM Referred By: REFERRED SELF Confirmed By:John William
[2019-12-06] MEDS: MIRABEGRON ER 25 MG TAB PO SCH (20:45)
[2019-12-07] MEDS: LEVOTHYROXINE SODIUM 25 MCG TABLET PO SCH (05:38)
[2019-12-07] MEDS: TROSPIUM PO SCH (05:40)
[2019-12-07 07:50] LABS: BUN Creatinine Ratio 30.7 (10-20); Calcium 8.4 mg/dl (8.5-10.1); Creatinine Clr Calc Pharmacy 62.5 ml/min; Est GFR (Non-African American) 92.3; Magnesium 2.3 mg/dl (1.8-2.4); Potassium 3.7 mmol/L (3.5-5.1)
[2019-12-07] MEDS: HEPARIN SOD 5,000 UNIT/0.5 ML VIAL SQ SCH ×2 (08:21→20:20)
[2019-12-07] MEDS: DOCUSATE SODIUM/SENNA 50/8.6MG TAB PO SCH (08:22)
[2019-12-07] MEDS: CYANOCOBALAMIN 500 MCG TABLET (VITAMIN B-12) PO SCH (08:22)
[2019-12-07] MEDS: UREA (URE-NA) 15 GM PACK PO SCH ×2 (10:08→20:20)
--- NOTE | 2019-12-07 10:58 | Hospitalist Progress Note ---
Date of Service December 07, 2019 Assessment & Plan (1) Chronic hyponatremia: This is a 74-year-old male who has significant PMH of chronic anemia, BPH, urethral stricture, history of TB in 1973 who presents to ED in the referral of PCP secondary to hyponatremia. Further admits over the past 2 to 3 months of increasing weakness, falls, dizziness with standing, and ~ 20lb weight loss in past 4 months. This is chronic hyponatremia and has been present as documented in [facility] dating back to 2003. 11/26 sodium 123, 09/05/19 125, 01/2019 130, denies further work up in past. Renal fxn 24 and 0.59, with ratio 39.9, although not dry on exam. Report excessive fluid intake of 10-15 8oz cups daily. Pt does have untreated hypothyroidism - recommending to start levothyroxine as recommended outpt and discontinuing OTC supplements as this could be contributing. He has received IVF in ED. 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 hypothyroidism Patient is severely malnourished, says that he follows with [facility] at [facility] Patient has been on a very restrictive diet, for no good reason Patient was seen by dietitian here, had a long discussion about improving his nutritional status (3) Pulmonary nodule, left: incidental pulmonary nodule found on Ct 11/29 3mm JASWANT recommend follow up CT as outpt given associated weight loss, 12 months per fleischner criteria if continued weight loss of no other etiology would repeat sooner (4) Hypothyroidism: TSH 13.2, free T4 0.75 Outpatient labs 11/26 revealed TSH 13, free T4 0.73 Patient was advised to start levothyroxine; however has not yet started and has been using [id number] thyroid complex supplements Commended continuing use of thyroid supplements and starting levothyroxine 25 mcg daily (5) Anemia: H&H stable at 11.5 and 32.1 no s/sx of bleeding Possibly due to poor nutrition macrocytic obtain b12, folate, iron studies consistent with outpt lab studies (6) Lower extremity edema: Patient with bilateral lower extremity pretibial edema No signs or symptoms of DVT obtain b/l dopplers for thoroughness, along with LFTs edema likely multifactorial in setting of weight loss, hypothyroidism, possible hypoalbuminemia, polydipsia monitor, teds (7) Benign prostatic hyperplasia: continue with tropsium and myrbetriq (8) DVT prophylaxis: SQ heparin q12 Disposition: tele Follow up: PCP Dr. Davenport upon discharge Admission and Anticipated Discharge Date Admission Date: December 05, 2019 Subjective Patient is lying in bed, in no acute distress. Patient says that he already feels somewhat better. He denies any fevers, chills, chest pain or shortness of breath, abdominal pain, nausea or vomiting. Sodium 128 this morning. Per nephrology, start urea 15 g twice a day. Encouraged to have at least 3 regular meals with emphasis on high protein diet. Discussed with nephrology and dietitian, his poor nutritional status, and encouraged higher protein diet. Fluid restriction of 1.5 L was also advised. 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 Review of Systems Review of Systems: All systems reviewed & are unremarkable except as noted in HPI & below Constitutional: no fever and no chills Respiratory: no cough and no dyspnea Cardiovascular: no chest pain and no palpitations Gastrointestinal: no abdominal pain, no nausea and no vomiting Physical Exam Physical Exam: Constitutional: Thin, cachectic, male, vitals as above,in NAD, sitting up in bed, pleasant, conversing easily Head: Normocephalic, Atraumatic Eyes: PERRL, conjunctivae normal, anicteric sclerae, EOMI ENMT: external ear and nose normal, oropharynx normal Neck: trachea midline, no thyromegaly normal visual inspection Respiratory: normal respiratory effort, lungs clear to auscultation, no wheeze, rales, rhonchi. Normal insp/exp effort, no accessory muscle use Cardiovascular: RRR, no murmur, +mild pretibial/pedal edema (improved), no erythema, warmth Vessels: no JVD or carotid bruit Chest: normal inspection of chest Abdomen: normal bowel sounds, soft, nontender, thin, nondistended Musculoskeletal: no cyanosis or clubbing, extremities motor strength 5/5, moves extremities spontaneously Skin: no rashes, warm and dry Neurologic: PERRL, EOMI, accommodation nl, no face palsy, no dysarthria CN's II-XI intact bilaterally and moves all extremities Psychiatric: A+Ox3, euthymic affect Results & Data Results & Data ([facility]) Vital Signs (Past 12 Hours) Vital Signs Temp Pulse Pulse Resp BP Pulse Ox 12/07/19 07:55 36.8 C 52 L 18 118/77 98 12/07/19 07:05 66 12/07/19 03:13 36.7 C 56 L 16 103/68 97 12/06/19 23:50 56 L 12/06/19 23:21 36.5 C 54 L 16 112/77 97 Laboratory Results 12/07/19 12/06/19 Range/Units 06:43 06:59 Sodium 128 L (136-145) mmol/L Potassium 3.7 (3.5-5.1) mmol/L Chloride 94 L (98-107) mmol/L Carbon Dioxide 27 (21-32) mmol/L Anion Gap 7.0 (3-11) BUN 21 H (7-18) mg/dl Creatinine 0.70 (0.6-1.4) mg/dl Est Cr Clr Drug Dosing 62.5 ml/min Est GFR ( Amer) 107.0 Est GFR (Non-Af Amer) 92.3 BUN/Creatinine Ratio 30.7 H (10-20) Glucose 84 (70-99) mg/dl Calcium 8.4 L (8.5-10.1) mg/dl Phosphorus 3.0 (2.5-4.9) mg/dl Magnesium 2.3 (1.8-2.4) mg/dl Cortisol AM Sample 30.31 H (4.3-22.4) mcg/dl Medications Administered Current Inpatient Medications Acetaminophen (Tylenol) 650 mg PO Q4H PRN PRN Reason: Pain or Fever Stop: 01/04/20 19:57 Al Hydrox/Mg Hydrox/Simethicone (Maalox) 15 ml PO Q4H PRN PRN Reason: Dyspepsia Stop: 01/04/20 19:57 Cyanocobalamin (Vitamin B-12) 1,000 mcg PO DAILY JUSTYN Stop: 01/05/20 08:59 Last Admin: 12/07/19 08:22 Dose: 1,000 mcg Documented by: Heparin Sodium (Porcine) (Heparin Sodium (Porcine)) 5,000 units SQ Q12 JUSTYN Stop: 01/04/20 20:59 Last Admin: 12/07/19 08:21 Dose: 5,000 units Documented by: Ioversol (Optiray 320 100ml) 92 ml IV ONCE PRN PRN Reason: Interaction Checking Stop: 12/09/19 22:45 Last Admin: 12/05/19 22:46 Dose: 92 ml Documented by: Levothyroxine Sodium (Synthroid) 25 mcg PO DAILYBB [facility] Stop: 01/05/20 06:29 Last Admin: 12/07/19 05:38 Dose: 25 mcg Documented by: Magnesium Hydroxide (Milk Of Magnesia) 30 ml PO Q12H PRN PRN Reason: Constipation Stop: 01/04/20 19:57 Mirabegron (Myrbetriq Er) 25 mg PO HS [facility] Stop: 01/05/20 20:59 Last Admin: 12/06/19 20:45 Dose: 25 mg Documented by: Trospium~Non- Formulary Patient's Own Med 1 ea PO Q24H JUSTYN Stop: 01/05/20 06:29 Last Admin: 12/07/19 05:40 Dose: 1 mg Documented by: Ondansetron HCl (Zofran) 4 mg IV Q6H PRN PRN Reason: Nausea Stop: 01/04/20 19:57 Polyethylene Glycol (Miralax Powder Packet) 17 gm PO DAILY PRN PRN Reason: Constipation Stop: 01/04/20 19:57 Potassium Chloride (Klor-Con M20) 40 meq PO NOW STA Stop: 12/07/19 10:58 Senna/Docusate Sodium (Senokot S) 1 tab PO QAM JUSTYN Stop: 01/04/20 20:29 Last Admin: 12/07/19 08:22 Dose: 1 tab Documented by: Urea (Ure-Na) 15 gm PO BID JUSTYN Stop: 01/06/20 09:59 Last Admin: 12/07/19 10:08 Dose: 15 gm Documented by:
--- NOTE | 2019-12-07 11:10 | Nephrology Progress Note ---
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 His urine is monitor and urine sodium were high. Sodium is improving after IV fluids and treatment of his hypothyroidism. We discussed pathophysiology of hyponatremia. Sodium is 128 today. -We will start urea 15 g twice daily. Would give him 1 more day and hopefully discharge tomorrow if sodium is better -He should be on a fluid restriction of 1.5 L at most even after discharge. -I encouraged him to have at least 3 regular meals with emphasis on high protein diet -Okay to salt his food -Monitor sodium daily. Target rate of correction of 6 points daily (2) Lower extremity edema: Likely due to low albumin and venous stasis. He is wearing compression stockings. Will consider adding Lasix if he is sodium does not improve. Admission and Anticipated Discharge Date Admission Date: December 05, 2019 Subjective Patient feels better today. He is ambulating in the hallways. Still has mild leg swelling. Sodium is slightly better today. Review of Systems Review of Systems: All systems reviewed & are unremarkable except as noted in HPI & below Physical Exam Physical Exam: General exam: Cachectic, appears comfortable, no acute distress HEENT: Pupils are equal and reactive to light Neck: No JVD, neck is supple trachea is midline Respiratory system: Clear breath sounds bilaterally. Gastrointestinal: Abdomen is soft, non distended, non tender, bowel sounds are present CVS: Regular rate and rhythm. No murmurs, rubs or gallops Musculoskeletal: No joint or muscle tenderness Extremities: Non tender, 1+ edema, peripheral pulses are present Neuro: Oriented, no tremors, no focal neurological deficits Skin: No rashes Results & Data ([facility]) Vital Signs (Past 12 Hours) Vital Signs Temp Pulse Pulse Resp BP Pulse Ox 12/07/19 07:55 36.8 C 52 L 18 118/77 98 12/07/19 07:05 66 12/07/19 03:13 36.7 C 56 L 16 103/68 97 12/06/19 23:50 56 L 12/06/19 23:21 36.5 C 54 L 16 112/77 97 Laboratory Results 12/07/19 06:43 12/07/19 06:43 Phosphorus 3.0
[2019-12-07] MEDS ORDERED: POTASSIUM CHLORIDE 20 MEQ TABCR PO ONE (11:15)
[2019-12-07] MEDS: MIRABEGRON ER 25 MG TAB PO SCH (20:20)
[2019-12-08] MEDS: LEVOTHYROXINE SODIUM 25 MCG TABLET PO SCH (06:04)
[2019-12-08] MEDS: TROSPIUM PO SCH (06:05)
[2019-12-08 08:29] LABS: Mean Corpuscular Hemoglobin 36.5 pg (25-34); Mean Corpuscular Hgb Conc 36.1 g/dL (32-36); Mean Corpuscular Volume 101.1 fL (80-100); Mean Platelet Volume 11.6 fL (7.4-10.4); Platelet Count 204 K/uL (130-400); RDW Coefficient of Variation 12.6 % (11.5-14.5); RDW Standard Deviation 46.4 fL (36.4-46.3); Red Blood Count 3.56 M/uL (4.7-6.1); White Blood Count 2.95 K/uL (4.8-10.8)
[2019-12-08] MEDS: HEPARIN SOD 5,000 UNIT/0.5 ML VIAL SQ SCH (08:32)
[2019-12-08] MEDS: DOCUSATE SODIUM/SENNA 50/8.6MG TAB PO SCH (08:32)
[2019-12-08] MEDS: CYANOCOBALAMIN 500 MCG TABLET (VITAMIN B-12) PO SCH (08:33)
[2019-12-08] MEDS: UREA (URE-NA) 15 GM PACK PO SCH (08:33)
[2019-12-08 08:39] LABS: Partial Thromboplastin Ratio 0.9; Partial Thromboplastin Time 26.5 Seconds (21.0-31.0)
[2019-12-08 09:28] LABS: BUN Creatinine Ratio 67.6 (10-20); Calcium 9.1 mg/dl (8.5-10.1); Est GFR (Non-African American) 98.4; Potassium 3.5 mmol/L (3.5-5.1)
[2019-12-08] MEDS ORDERED: POTASSIUM CHLORIDE 20 MEQ TABCR PO STA (10:17)
[2019-12-08] MEDS: SODIUM CHLORIDE 1 GM TABLET PO SCH ×2 (11:14→15:06)
--- NOTE | 2019-12-08 14:40 | Discharge Summary ---
Date of Service December 08, 2019 Admission HPI Per Admitting Provider This is a 74-year-old male who has significant PMH of chronic anemia, BPH, urethral stricture, history of TB in 1973 who presents to ED in the referral of PCP secondary to hyponatremia. Further admits over the past 2 to 3 months of increasing weakness, falls, dizziness with standing, and ~ 40lb weight loss in past 4 months. He states, "I've always had low sodium, but never this low." "I just add more salt to my diet." He denies every having workup or nephrology referral. He denies any recent illness, fever, sweats, syncope, chest pain, sob, palpitations, cough, n/v/d, abdominal pain. He is more on the constipated side but denies melena or hematochezia. +Urinary urgency due to chronic prostate enlargement, but denies dysuria or hematuria. Denies sick contacts or known contacts with Covid 19. He denies loss of taste of smell. He admits to ~40lb weight loss in past 4 months despite adequate appetite. "I keep losing weight." He was told he had hypothyroidism, but has never taken prescription for this. He has been using OTC thyroid supplements. Further complains of lower extremity swelling, worse in evening and usual absent first thing in the morning. Last fall approx 2 weeks ago. He did have recent w/u with PCP 11/26 08/05 to weakness and weight loss which revealed Na of 123, TSH 1, Free T4 .73. He had Chest CT 11/29 to eval for possible malignancy which revealed T10 compression fracture, old right third and left lateral rib fracture, incidental 3 mm pulmonary nodule left upper lobe, thoracic aortic enlargement 4.2 cm. He currently denies any back pain. He overall does have difficulty walking secondary to weakness, but not due to pain. EGD and colonoscopy 09/2019. EGD revealed LA grade a esophagitis, no bleeding. Colonoscopy revealed poor prep and therefore unable to evaluate. He has not scheduled a for a repeat colonoscopy. It was recommended he be started on Protonix for esophagitis but he has not started this. He does overall admit to a good appetite. He drinks approximately 10-15 8 ounce cups of water/tea daily. He denies any alcohol use. In ED patient remained hemodynamically stable. Lab work notable for H&H 11.5 and 32.1, WBC 4.3 platelet 161, sodium 122, K4.0, BUN 24, creatinine 0.59, glucose 105, serum osmolality 263, mag 2.6, TSH 13.2, free T4 0.75. Urinalysis unremarkable, urine osmolality 260, urine sodium 68. He did undergo multiple imaging secondary to history of fall. He underwent head CT which revealed chronic microvascular ischemic change but no acute pathology. Cervical spine CT revealed degenerative changes but no acute abnormality. Pelvic x-ray was negative for fracture. Chest x-ray was negative for acute cardiopulmonary normality. Admission Exam Per Admitting Provider Constitutional: Thin, cachectic, M, vitals as above, NAD, sitting up in bed, pleasant, conversing easily Head: Normocephalic, Atraumatic Eyes: PERRL, conjunctivae normal, anicteric sclerae ENMT: external ear and nose normal, oropharynx normal Neck: trachea midline, no thyromegaly normal visual inspection Respiratory: normal respiratory effort, lungs clear to auscultation, no wheeze, rales, rhonchi. Normal insp/exp effort, no accessory muscle use Cardiovascular: RRR, no murmur, +1 lower extremity, pretibial edema, no erythema, warmth, negative homans sign Vessels: no JVD or carotid bruit Chest: normal inspection of chest Abdomen: normal bowel sounds, soft, nontender, no hepatosplenomegaly Musculoskeletal: no cyanosis or clubbing, extremities motor strength 5/5 Skin: no rashes, warm and dry normal turgor Neurologic: PERRL, EOMI, accommodation nl, no face palsy, no dysarthria CN's II-XI intact bilaterally and moves all extremities Psychiatric: A+Ox3, euthymic affect Lymphatic: no cervical or axillary lymphadenopathy : deferred Principal Diagnosis Hyponatremia Hypothyroidism Severe protein calorie malnutrition Pulmonary nodule Discharge Exam Constitutional: Thin, cachectic, male, in NAD, sitting up in chair, conversing easily Head: Normocephalic, Atraumatic Eyes: PERRL, conjunctivae normal, anicteric sclerae, EOMI ENMT: external ear and nose normal, oropharynx normal Neck: trachea midline, no thyromegaly normal visual inspection Respiratory: normal respiratory effort, lungs clear to auscultation, no wheeze, rales, rhonchi. Normal insp/exp effort, no accessory muscle use Cardiovascular: RRR, no murmur, +mild pretibial/pedal edema (improved), no erythema, warmth Vessels: no JVD or carotid bruit Chest: normal inspection of chest Abdomen: normal bowel sounds, soft, nontender, thin, nondistended Musculoskeletal: no cyanosis or clubbing, extremities motor strength 5/5, moves extremities spontaneously Skin: no rashes, warm and dry Neurologic: PERRL, EOMI, accommodation nl, no face palsy, no dysarthria CN's II-XI intact bilaterally and moves all extremities Psychiatric: A+Ox3, euthymic affect Discharge Data Allergies Allergy/AdvReac Type Severity Reaction Status Date / Time Penicillins Allergy Mild HIVES, RASH Unverified 12/05/19 15:28 lactose AdvReac Mild GI UPSET Verified 12/05/19 15:28 solifenacin AdvReac Mild SEVERE Verified 12/05/19 15:28 DIARRHEA Consultations 12/05/19 16:30 ED Decision to Admit Stat 12/05/19 19:58 Consult Case Management - Discharge Planning Routine Consult Nephrology Routine Ordered Studies 12/05/19 15:30 CT cervical spine wo con Stat IMPRESSION: No fractures within the cervical spine. Severe degenerative changes throughout the cervical spine. CT head/brain wo con Stat Impression: No acute intracranial abnormality. Atrophy and microvascular ischemic changes. 12/05/19 17:43 CT abd pelvis wo con Stat 12/05/19 18:50 US venous doppler LE BI Routine IMPRESSION: No DVT within the right or left lower extremity. 12/05/19 19:14 CT abd pelvis oral and IV con Urgent IMPRESSION: 1. Overall, cachectic appearance resulting in lack of intraperitoneal fat. This results in a suboptimal study. 2. However, no definite bowel wall thickening or obstruction. 3. Heterogeneous enlarged prostate gland. 4. No lymphadenopathy identified. Hospital Course (1) Chronic hyponatremia: This is a 74-year-old male who has significant PMH of chronic anemia, BPH, urethral stricture, history of TB in 1973 who presents to ED in the referral of PCP secondary to hyponatremia. Further admits over the past 2 to 3 months of increasing weakness, falls, dizziness with standing, and ~ 20lb weight loss in past 4 months. This is chronic hyponatremia and has been present as documented in [facility] dating back to 2003. 11/26 sodium 123, 09/05/19 125, 01/2019 130, denies further work up in past. Renal fxn 24 and 0.59, with ratio 39.9, although not dry on exam. Report excessive fluid intake of 10-15 8oz cups daily. Pt does have untreated hypothyroidism - recommending to start levothyroxine as recommended outpt and discontinuing OTC supplements as this could be contributing. He has received IVF in ED. 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 to monitor BMP Treat hypothyroidism Fluid restriction 1.2L Tried urea 15 g twice daily - will stop Patient was started on sodium tablets 3 times daily, will discharge on this medication, as well as potassium supplement Nutritional evaluation, patient encouraged to have at least 3 meals a day, with emphasis on high protein diet Patient will need BMP, on Tuesday next week, lab results to be sent to Dr. Frankel, ux consultant. Patient also needs to follow-up with ux consultant in couple of weeks. (2) Weight loss, unintentional: Severe protein calorie malnutrition pt reports ~20lb weight loss, unintentional in 4 months denies any other constitutional symptoms including night sweats CT head negative, CT chest + 3mm JASWANT pulm nodule obtained CT abd/pelvis to eval for underlying malignancy (he had EGD 09/2019 +esophagitis, colonoscopy poor prep), CT unremarkable, see above rock mason consulted treat hypothyroidism Patient is severely malnourished, says that he follows with crop quantitative geneticist at [facility] Patient has been on a very restrictive diet, for no good reason Patient was seen by dietitian here, had a long discussion about improving his nutritional status, it is recommended that he has at least 3 meals a day, with higher protein content (3) Pulmonary nodule, left: incidental pulmonary nodule found on Ct 11/29 3mm JASWANT recommend follow up CT as outpt given associated weight loss, in 12 months if continued weight loss or if no other etiology would repeat sooner (4) Hypothyroidism: TSH 13.2, free T4 0.75 Outpatient labs 11/26 revealed TSH 13, free T4 0.73 Patient was advised to start levothyroxine; however has not yet started and has been using [id number] thyroid complex supplements Started levothyroxine 25 mcg daily Will need to follow-up with PCP, and repeat TSH, T4 (5) Anemia: H&H stable at 11.5 and 32.1 no s/sx of bleeding Possibly due to poor nutrition macrocytic obtain b12, folate, iron studies consistent with outpt lab studies (6) Lower extremity edema: Patient with bilateral lower extremity pretibial edema No signs or symptoms of DVT obtained b/l dopplers for thoroughness -negative, along with LFTs edema likely multifactorial in setting of weight loss, hypothyroidism, possible hypoalbuminemia, polydipsia monitor, teds -Now edema somewhat improved (7) Benign prostatic hyperplasia: continue with tropsium and myrbetriq Total Time Total Time Spent Total Time Spent (In Minutes): 40 Total Time Includes: Examination of the Patient, Discharge Planning, Medication Reconciliation and Communication With Other Providers Discharge Plan Discharge Items Patient Disposition: Home - Home Health Services Reason For Visit: CHRONIC HYPONATREMIA Discharge Diagnosis: Hyponatremia Hypothyroidism Severe protein calorie malnutrition Pulmonary nodule Activity: Per Instructions section Non-emergency contact: Primary Care Provider and Relay Repairer Call non-emergency contact if: you have any medication questions and your symptoms worsen Follow-up/Referrals: eLxa Davenport DO [Primary Care Provider] - Diet: Regular and Lactose Intolerant Fluids: 1200ml (5 cups) Addtl Attending Provider Instructions: Follow-up with her primary care doctor within 1 week. It is very important that you take medication for your thyroid insufficiency, levothyroxine. As discussed, you need to take his medication first in the morning on empty stomach, and not eat anything for at least 30 to 40 minutes. For your low sodium level, take sodium tablets as prescribed. Also take potassium supplement as prescribed. Blood work to check on your sodium level will need to be done on Tuesday next week. Your primary care doctor can order this and send it to Dr. Frankel, ux consultant. You need to follow-up with ux consultant in couple of weeks as well, you will be called from their office about the appointment. Make sure to follow dietitian's recommendations. It is important that you have at least 3 meals a day with higher protein intake. You should restrict your fluid intake to 1.2 L a day. Pending Studies at Discharge: No Stand-Alone Forms: [employer], Smoking Cessation Medications and DC Order Prescriptions: New sodium chloride 1 gram Tablet 1 g PO TID 30 Days Qty: 90 RF: 0 levothyroxine [Synthroid] 25 mcg Tablet 25 mcg PO DAILY 30 Days Qty: 30 RF: 0 potassium chloride 20 mEq tablet,ER particles/crystals 20 meq PO BID 30 Days Qty: 60 RF: 0 No Action cyanocobalamin (vitamin B-12) [Vitamin B-12] 1,000 mcg Tablet 0 mcg PO DAILY RF: 0 trospium 60 mg capsule,extended release 24hr 60 mg PO QAM RF: 0 Myrbetriq 25 mg tablet extended release 24 hr 25 mg PO DAILY RF: 0 Cataplex B 2 tabs PO TIDM RF: 0 Enzycore 1 cap PO TIDM RF: 0 Tarik Food 1 tab PO DAILY RF: 0 Ligaplex 2 2 tab PO TIDM RF: 0 Magnesium Malate 0 mg PO UD RF: 0 Thyroid Complex Otc 1 tab PO DAILY RF: 0 Thytropin Tab 1 tab PO TIDM RF: 0 Discharge Orders: Discharge Order (Routine); Ordered 12/08/19 Ordered By: Evans Khan Admission Data Admit Date/Time: 12/05/19 16:57 Attending Provider: Evans Khan Admit Provider: Leonel Nick Primary Care Provider: Lexa Davenport Other Providers: Leonel Nick ; Kaelyn Frankel
--- NOTE | 2019-12-08 16:35 | Nephrology Progress Note ---
Date of Service December 08, 2019 Assessment & Plan (1) Chronic hyponatremia: Patient with hyponatremia likely combination of SIADH and hypothyroidism. His urine is monitor and urine sodium were high. Sodium is improving after IV fluids and treatment of his hypothyroidism. We discussed pathophysiology of hyponatremia. Sodium is 128 today. -We will start salt tabs 1g tid, stop urea as patient will be going home and cant afford urea. -He should also take KCL 40meq daily. -Repeat BMP next week sent to me and follow up in renal clinic in 1-2 weeks -He should be on a fluid restriction of 1.5 L at most even after discharge. -I encouraged him to have at least 3 regular meals with emphasis on high protein diet -Okay to salt his food -Monitor sodium daily. Target rate of correction of 6 points daily (2) Lower extremity edema: Likely due to low albumin and venous stasis. He is wearing compression stockings. Admission and Anticipated Discharge Date Admission Date: December 05, 2019 Subjective Patient was seen in the morning. NA is 128, not much change. He reports weakness. He is eating well. Wants to go home Review of Systems Review of Systems: All systems reviewed & are unremarkable except as noted in HPI & below Physical Exam Physical Exam: General exam: Cachectic, Appears comfortable, no acute distress HEENT: Pupils are equal and reactive to light Neck: No JVD, neck is supple trachea is midline Respiratory system: Clear breath sounds bilaterally. Gastrointestinal: Abdomen is soft, non distended, non tender, bowel sounds are present CVS: Regular rate and rhythm. No murmurs, rubs or gallops Musculoskeletal: No joint or muscle tenderness Extremities: Non tender, no edema, peripheral pulses are present Neuro: Oriented, no tremors, no focal neurological deficits Skin: No rashes Results & Data ([facility]) Vital Signs (Past 12 Hours) Vital Signs Temp Pulse Pulse Resp BP BP Pulse Ox 12/08/19 16:27 36.4 C L 52 L 62 16 109/76 95/61 L 98 12/08/19 16:00 36.4 C L 62 16 109/76 98 12/08/19 07:00 36.3 C L 80 18 117/76 93 Laboratory Results 12/08/19 08:05 12/08/19 08:04 WBC 2.95 L RBC 3.56 L MCV 101.1 H MCH 36.5 H MCHC 36.1 H RDW Std Deviation 46.4 H RDW Coeff of Guille 12.6 Plt Count 204 MPV 11.6 H
== END 2019-12-08 17:25 | disposition home health service (06) | DRG 643 ==
LOC: ED 14:20 → SUATTDRO 16:57 → 2N 16:57 → 2W 12-08 06:23